=== PATIENT | male | born 1945 | race African-American/Black ===

== ENCOUNTER 2018-10-02 12:21 | Observation (INO) ==
[2018-10-02] MEDS ORDERED: NITROGLYCERIN TOP ONE (13:02)
--- NOTE | 2018-10-02 13:21 | EKG Report ---
Test Performed on : 10/02/2018 12:28:42 PM Test Reason : chest pain Blood Pressure : / mmHG Vent. Rate : 078 BPM Atrial Rate : 078 BPM P-R Int : 170 ms QRS Dur : 116 ms QT Int : 428 ms P-R-T Axes : 089 036 268 degrees QTc Int : 487 ms Normal sinus rhythm. Inferior infarct (cited on or before 11-APR-2016) ST & T wave abnormality, consider lateral ischemia Abnormal ECG When compared with ECG of 03-MAY-2016 06:10, No significant change was found Unconfirmed Result
--- NOTE | 2018-10-02 13:21 | Diag Imaging Result Doc PS360 ---
EXAM: CHEST-2 VIEWS 10/02/2018 HISTORY: chest pain TECHNIQUE: PA and lateral chest COMMENT: The inspiration is suboptimal. Considering the degree of inspiration there has probably been no significant change since 01/10/2018. IMPRESSION: Poor inspiration. Electronically signed by Anjum Lee 10/02/2018 1:19 PM
[2018-10-02 14:02] LABS: BASO# 0.02 X1000 (0.0-0.2); BASO% 0.4 % (0.0-0.8); EOS# 0.04 X1000 (0.0-0.7); EOS% 0.9 % (0.0-10.0); HEMATOCRIT 36.7 % (42.0-52.0); HEMOGLOBIN 12.4 g/dL (14.0-18.0); LYMPH# 0.92 X1000 (1.2-3.4); LYMPH% 19.8 % (20.5-51.1); MCH 30.8 PG (27-31); MCHC 33.8 g/dL (33-37); MCV 91.3 FL (81-99); MONO# 0.38 X1000 (0.11-0.59); MONO% 8.2 % (1.7-9.3); MPV 10.1 FL (7.4-10.4); NEUT# 3.29 X1000 (1.4-6.5); NEUT% 70.7 % (42.2-75.2); PLT 150 X1000 (130-400); RBC 4.02 XMIL (4.7-6.1); WBC 4.65 X1000 (4.8-10.8)
[2018-10-02 14:09] LABS: INR 1.22; PROTIME 16.4 Seconds (11.0-16.0)
[2018-10-02 14:11] LABS: PTT 32.6 Seconds (22.3-41.8)
[2018-10-02 14:18] LABS: ALB/GLOB RATIO 1.5; ALBUMIN 3.9 g/dL (3.5-5.0); CREATININE 1.6 mg/dL (0.7-1.2); MAGNESIUM 1.4 mg/dL (1.5-2.7); POTASSIUM 4.5 mmol/L (3.5-5.1); TOTAL BILIRUBIN 0.74 mg/dL (0.20-1.00); TOTAL PROTEIN 6.5 g/dL (6.3-8.3)
[2018-10-02] MEDS ORDERED: MAGNESIUM SULFATE 4 GM/S.W.I. 4 GM/100 ML IVPB IV ONE (15:01)
--- NOTE | 2018-10-02 16:33 | PROVIDER DOCUMENTATION ---
This chart was entered by Dee Crockett Scribe, acting as scribe for Von Mejía MD. HPI-Chest Pain - General Chief Complaint: Chest Pain Stated Complaint: CP Time Seen by Provider: 10/02/18 12:45 Source: patient Allergies/Adverse Reactions: Patient Allergies Allergy/AdvReac Type Severity Reaction Status Date / Time No Known Allergies Allergy Verified 10/02/18 12:57 Home Medications: Home Medication List Medication Instructions Recorded Confirmed Last Taken Type Metoprolol Succinate E.r. [Toprol 200 mg PO DAILY 05/21/13 01/10/18 05/02/16 06:00 History Xl] Omeprazole 20 mg PO BID 05/21/13 01/10/18 05/02/16 06:00 History Potassium Chloride 20 meq PO DAILY 05/21/13 01/10/18 05/02/16 06:00 History Amlodipine [Norvasc] 5 mg PO DAILY #0 tablet 04/16/16 01/10/18 05/02/16 06:00 Rx Apixaban [Eliquis] 5 mg PO BID #60 tablet 04/16/16 01/10/18 05/02/16 06:00 Rx Aspirin EC 81 mg PO DAILY #0 tablet 04/16/16 01/10/18 05/02/16 06:00 Rx Clopidogrel [Plavix] 75 mg PO DAILY #0 tablet 04/16/16 01/10/18 05/02/16 06:00 Rx Colesevelam [Welchol] 625 mg PO BID #0 tablet 04/16/16 01/10/18 05/02/16 06:00 Rx ENALApril [Vasotec] 5 mg PO DAILY #0 tablet 04/16/16 01/10/18 05/02/16 06:00 Rx Ezetimibe [Zetia] 10 mg PO DAILY #0 tablet 04/16/16 01/10/18 05/02/16 06:00 Rx Hydrocodone/APAP 10 mg/325 mg 1 each PO BID PRN PRN #0 tablet 04/16/16 01/10/18 05/01/16 21:00 Rx [[place]-10] Isosorbide Mononitrate E.r. [Imdur] 60 mg PO DAILY #0 tablet 04/16/16 01/10/18 05/02/16 06:00 Rx Magnesium Cl D.r. [Slow-Mag] 64 mg PO DAILY #0 tablet 04/16/16 01/10/18 05/02/16 06:00 Rx Amiodarone [Cordarone] 400 mg PO DAILY #30 tablet 05/04/16 01/10/18 Unknown Rx Methocarbamol [Robaxin] 500 mg PO BID PRN #14 tab 01/10/18 Unknown Rx - History of Present Illness-CP Nature of Presenting Problem: 73 y/o male presents to ED with central, non-radiating chest pain onset 3 hours ago. Pt reports his symptoms have subsided now. Pt states he does have some back pain, but denies nay other symptoms. Pt is alert and oriented. Location: reports: central Chest Pain Radiation: reports: no radiation Quality of Pain: reports: sharp Severity in ED: moderate Onset/Duration: 1-3 hours ago Timing: gone now Context/Activities at Onset: reports: none Modifying Factors: improves with: nothing Associated Symptoms: reports: back pain Nitro Today/Relief: provided by ED Aspirin Treatment Today: no aspirin today Prior Chest Pain/Cardiac Workup: reports: other (CABG) Similar Symptoms Previously?: No Recently Seen Here or By Another Healthcare Provider: No Review of Systems - Adult - REVIEW OF SYSTEMS - ADULT Constitutional: denies: chills, fever Eyes: reports: no symptoms reported Ears, Nose, Mouth & Throat: reports: no symptoms reported Cardiovascular: reports: chest pain. denies: palpitations Respiratory: denies: cough, shortness of breath Gastrointestinal: denies: abdominal pain, diarrhea, nausea, vomiting Genitourinary: reports: no symptoms reported Musculoskeletal: reports: back pain. denies: joint pain Integumentary: reports: no symptoms reported Neurological: denies: dizziness/vertigo, seizure Psychiatric: reports: no symptoms reported Endocrine: reports: no symptoms reported Hematologic/Lymphatic: reports: no symptoms reported Allergic/Immunologic: reports: no symptoms reported All Other Systems: Reviewed and Negative Past History - Adult - PAST MEDICAL HISTORY-ADULT Review of Records: reports: Old Records Reviewed, Nursing Assessment Review, Medications Reviewed Major Childhood Illnesses: reports: denies history Cardiovascular: reports: blood clots (PE), CHF, HTN, hyperlipidemia, other (Cardiac disease; ) Gastrointestinal: reports: GERD - PRIOR SURGERIES/PROCEDURES Surgical/Procedure History: reports: CABG, hernia repair, other (hernia repair) - IMMUNIZATION STATUS Childhood Immunizations: See Nurse Assessment Flu Vaccine: See Nurse Assessment - FAMILY HISTORY Family History: reviewed, not pertinent - SOCIAL HISTORY Smoking: less than 1 pack/day Provider spent 3-5 mins advising pt. on dangers of tobacco.: Discussed manners to quit use, and f/u contacts for add'l counseling. Substance Use: none/never Alcohol Use Frequency: never Living Situation: family Physical Exam-General - PHYSICAL EXAM-ADULT Initial Vital Signs Reviewed: Yes - CONSTITUTIONAL General Appearance: appears well, alert, no apparent distress - EYES Eyes: PERRL/EOMI, pink conjunctivae - HEAD, EARS, NOSE, MOUTH & THROAT HENMT: normocephalic/atraumatic, moist mucous membranes, normal ENT inspection - NECK Neck: non-tender, full range of motion - RESPIRATORY Respiratory: chest non-tender, lungs clear, normal breath sounds - CARDIOVASCULAR Cardiovascular: normal peripheral pulses, regular rate, rhythm - GASTROINTESTINAL (ABDOMEN) Abdominal Exam: normal bowel sounds, non tender, soft - MUSCULOSKELETAL Back Exam: normal inspection, no CVA tenderness Extremity: normal range of motion, non-tender, normal gait - SKIN Integumentary: normal color, warm/dry - NEUROLOGIC Neurologic: grossly normal - PSYCHIATRIC Psych/Mental Status: normal mood/affect, normal thought content, normal thought process - HEART Score HEART Score: History: Slightly Suspicious HEART Score: ECG: Normal HEART Score: Age: > or = 65 Years HEART Score: Risk Factors for Atherosclerotic Disease: > or = 3 Risk Factors or History of Atherosclerotic Disease HEART Score: Troponin: < or = Normal Limit Total HEART Score:: 4 Progress - PLAN OF CARE/RESULTS Progress/Plan/Lab Results: Vital Signs - 8 hr 10/02/18 12:29 10/02/18 15:29 Temperature 97.8 F Pulse Rate 77 66 Respiratory Rate 20 18 Blood Pressure 138/81 125/76 O2 Sat by Pulse Oximetry 97 99 Laboratory Results - last 24 hr 10/02/18 10/02/18 10/02/18 13:45 13:45 13:45 WBC 4.65 L RBC 4.02 L Hgb 12.4 L Hct 36.7 L MCV 91.3 MCH 30.8 MCHC 33.8 RDW Std Deviation 14.0 Plt Count 150 MPV 10.1 Immature Gran % (Auto) 0.0 Neut % (Auto) 70.7 Lymph % (Auto) 19.8 L [place] % (Auto) 8.2 Eos % (Auto) 0.9 Baso % (Auto) 0.4 Immature Gran # (Auto) 0.00 Neut # (Auto) 3.29 Lymph # (Auto) 0.92 L [place] # (Auto) 0.38 Eos # (Auto) 0.04 Baso # (Auto) 0.02 PT INR PTT (Actin FS) Sodium 141 Potassium 4.5 Chloride 105 Carbon Dioxide 25 Anion Gap 11 BUN 22 Creatinine 1.6 H Estimated GFR/1.73 m2 52 BUN/Creatinine Ratio 14 Glucose 103 Calculated Osmolality 285 Calcium 10.0 Magnesium 1.4 L Total Bilirubin 0.74 AST 18 ALT 11 Alkaline Phosphatase 62 Creatine Kinase 76 Troponin T Cad-V-Sfmjnxlmojd Pept 872 H Total Protein 6.5 Albumin 3.9 Globulin 2.6 Albumin/Globulin Ratio 1.5 10/02/18 10/02/18 13:45 13:45 WBC RBC Hgb Hct MCV MCH MCHC RDW Std Deviation Plt Count MPV Immature Gran % (Auto) Neut % (Auto) Lymph % (Auto) [place] % (Auto) Eos % (Auto) Baso % (Auto) Immature Gran # (Auto) Neut # (Auto) Lymph # (Auto) [place] # (Auto) Eos # (Auto) Baso # (Auto) PT 16.4 H INR 1.22 PTT (Actin FS) 32.6 Sodium Potassium Chloride Carbon Dioxide Anion Gap BUN Creatinine Estimated GFR/1.73 m2 BUN/Creatinine Ratio Glucose Calculated Osmolality Calcium Magnesium Total Bilirubin AST ALT Alkaline Phosphatase Creatine Kinase Troponin T 0.021 Iqe-Y-Maxjpycggyw Pept Total Protein Albumin Globulin Albumin/Globulin Ratio Orders Category Date Time Status Admit - [facility] Routine AdmDCTranf 10/02/18 15:57 Active Cardiac Monitoring DIRECTED Care 10/02/18 13:01 Active Nursing- MD Consult Request ROUTINE Care 10/02/18 15:46 Active Oxygen Therapy- ED Nursing DIRECTED Care 10/02/18 13:01 Active Saline Loc NOW Care 10/02/18 13:01 Active Physician/Provider Consults Routine Cons 10/02/18 15:45 Ordered CHEST-2 VIEWS [RAD] Stat Exams 10/02/18 13:01 Completed CBC WITH ELECTRONIC DIFF [HEME] Stat Lab 10/02/18 13:45 Completed CK PROFILE [SP CHEM] Stat Lab 10/02/18 13:45 Completed COMPREHENSIVE METABOLIC PANEL [CHEM] Stat Lab 10/02/18 13:45 Completed MAGNESIUM [CHEM] Stat Lab 10/02/18 13:45 Completed PRO B-NATRIURETIC PEPTIDE Stat Lab 10/02/18 13:45 Completed PROTIME WITH INR [COAG] Stat Lab 10/02/18 13:45 Completed PTT [COAG] Stat Lab 10/02/18 13:45 Completed TROPONIN T Stat Lab 10/02/18 13:45 Completed Magnesium Sulfate 4 gm/S.w.i. [Magnesium Sulfate 4 gm/S Med 10/02/18 15:01 Active .w.i] 4 gm in 100 ml IV NOW Nitroglycerin Med 10/02/18 13:02 Discontinued 1 inch TOP NOW ONE CP/SOB/Palp >45 yrs of Age Stat Oth 10/02/18 12:59 Ordered EKG [EKG] Stat Ther 10/02/18 13:01 Draft Transfer/Admit Order [TRANSFER] Routine Transfer 10/02/18 15:56 Ordered Result Diagrams: 10/02/18 13:45 10/02/18 13:45 - EKG 1 Time of EKG reading by physician:: 12:39 EKG Read and Signed by:: Von Mejía EKG Interpretation (*Must complete 3 of following elements*): Abnormal Rate: 78 Rhythm: NSR [place]: normal QRS: other (inferior infarct) CA Interval: normal ST Wave: non-specific ST changes (consider lateral ischemia) Comments: No STEMI. -Dr. Mejía - XRAY 1 XRAY Study: Chest Impression: Abnormal (COMMENT: The inspiration is suboptimal. Considering the degree of inspiration there has probably been no significant change since 01/10/2018. IMPRESSION: Poor inspiration. Electronically signed by Anjum Lee 10/02/2018 1:19 PM) - CONSULTS/PCP/HOSPITALIST Notification #1 *Consult/PCP/Hospitalist*: Dr. Fish Time Discussed: 16:00 Reason/Comments: Chest pain Consult Disposition: Admit Departure - Departure Date of Disposition Decision: 10/02/18 Time of Disposition Decision: 16:32 DIAGNOSIS: V-tach, Hypomagnesemia Chest pain Qualifiers: Chest pain type: unspecified Qualified Code(s): R07.9 - Chest pain, unspecified Disposition: ADMITTED INPATIENT 09 Certified Medical Emergency: Emergent Condition: Stable Referrals and Follow-Ups: Basim Alberts MD [Primary Care Provider] - Discharge Education: Steps to Quit Smoking, [id number] - Critical Care Note This patient required my direct & personal management of CC.: No Attestation - Physician/ SHAISTA Attestation Patient care was provided by Advanced Practice Provider:: No The physician spent face to face time with patient:: Yes Advanced Practice Provider documentation review:: Supervising physician onsite and consulted in the evaluation and care of this patient. The physician did have a face to face encounter with the patient. This chart was documented by the indicated scribe, (Dee Crockett, [place]) and accurately reflects the services I performed and decisions made by me, Von Wiggins MD, as attested by the provider's signature.
[2018-10-02] MEDS ORDERED: NORCO-10 PO PRN (17:03)
--- NOTE | 2018-10-02 18:37 | CARDIOLOGY CONSULTATION ---
DATE: 10/02/2018 CHIEF COMPLAINT ON PRESENTATION: Chest pain. HISTORY OF PRESENT ILLNESS: Mr. Avila is a 73-year-old black male with a history of coronary disease who presented for evaluation of chest pain. This episode began this morning while he was standing in front of the window. It was in an essentially resting type position. It was a burning discomfort in his mid chest with no radiation. It lasted for around 3 hours with no other associated symptoms. There was no exertional component to it. This happened before he took his a.m. medications but after he had eaten. PAST MEDICAL HISTORY: Significant for: 1. Coronary artery disease with history of bypass grafting in 1994 with a GLASS to the LAD, vein graft to the RCA, vein graft to an OM and a vein graft to a diagonal. His most recent cardiac catheterization was in 2015. by Dr. Sosa. This demonstrated a completely occluded LAD right after a first diagonal. [place] was patent to the LAD. There was a diagonal that had a very focal 80% proximal lesion that was quite tortuous. The left main had severe ostial disease that is calcified. The ramus was a small tortuous vessel severely and diffusely diseased. Circumflex is occluded ostially. Right coronary artery is occluded within its proximal section. There was some right to right collaterals visualized. All vein grafts were occluded. 2. Ischemic cardiomyopathy; however, most recent gated heart scan demonstrated an EF of 61%. 3. Ventricular tachycardia for which he takes amiodarone. 4. Pulmonary embolism for which he is on Eliquis. 5. Hypertension. 6. Hyperlipidemia. 7. Carotid artery disease. 8. Chronic back pain. SOCIAL HISTORY: He lives at home. He does not currently use any illicit substances. FAMILY HISTORY: Significant for hypertension. REVIEW OF SYSTEMS: A 10-system review of systems is negative except for those things mentioned in HPI. PHYSICAL EXAMINATION: Vital Signs: He is afebrile, heart rate 66. His blood pressure is 125/76. General: He is in no acute distress. HEENT: Oropharynx is moist. Poor dentition. Eye examination has pink conjunctivae. White sclerae. Neck: Examination shows no obvious thyromegaly or thyroid tenderness. Cardiovascular: He sounds to be in a regular rate and rhythm. I do not hear any obvious murmurs. He has no S3. He has no lower extremity edema. No carotid bruits. Chest: Exam is clear bilaterally. He has no increased work of breathing. Abdomen: Soft, nontender, nondistended. He has no obvious organomegaly. Skin: Warm and dry throughout without any rashes. Neurological: He is moving all extremities well. He has no lateralizing deficits. PERTINENT DATA: His chest x-ray shows no evidence of any acute disease. His EKG checked today at 12:28 shows sinus rhythm. T-wave inversions noted inferiorly and laterally with presumed inferior infarct identified. This does not appear to be significantly different from a 2016 EKG that he had on file here. His lab data shows a white count of 4.6. His hematocrit is 36. His platelet count is 150,000. His sodium is 141, potassium is 4.5, BUN 22, creatinine 1.6, which appears slightly higher than his baseline. His proBNP is 872. His initial cardiac enzymes are negative. ASSESSMENT: Mr. Avila is a 73-year-old gentleman who presented with atypical chest discomfort. PLAN: At this point, we will rule him out. I have reinstituted some of his medications. I would not continue his Plavix. As per note with Dr. Card in the office in January of 2018, he was not on Plavix and only taking aspirin and Eliquis. If his enzymes are unremarkable and his echocardiogram is unremarkable, then he can likely be discharged with an expedited outpatient stress next week. cc: Partha Malloyr MD
[2018-10-02] MEDS: ELIQUIS PO SCH (20:38)
--- NOTE | 2018-10-02 22:09 | HISTORY AND PHYSICAL ---
CHIEF COMPLAINT: Chest pain of about 2 hours duration. HISTORY OF PRESENT ILLNESS: Mr. Avila is a 73-year-old man, with past medical history of coronary artery disease, status post CABG in 1994, status post blocked saphenous vein graft and patent internal mammary artery graft to LAD as per coronary angiography in 2016, where he was recommended medical management only. He comes in with chief complaint of chest pain which started today morning at about 10:30. Patient says he was trying to lie down in his bed and suddenly he started experiencing chest pain in the center of the chest, achy, without any radiation, without associated shortness of breath, palpitation, nausea, or weakness. He did not have significant aggravating or relieving factor. The chest pain was persistent and so he decided to come to the emergency room. However, by the time he came to the emergency room, his chest pain had already resolved. He denies any cough or shortness of breath or chest pain at the moment. In the emergency room, his initial workup detected inferolateral T-wave inversions on EKG which were old. However, in the emergency room, he did have episodes of wide complex tachycardia. Three such episodes were noticed, which were symptomatic and the patient was feeling fluttering, so the hospitalist team was consulted for further management. At the time of my evaluation, he is denying any chest pain, shortness of breath, or any more such episodes since about an hour or so. He states that he takes all of his medications regularly, and he took medications in the morning time as well. REVIEW OF SYSTEMS: Currently negative for chest pain. Currently, negative for palpitations; however, he has had about 3 or 4 episodes of palpitation while in the emergency room. Negative for dizziness, headache. Negative for blurriness of vision. Negative for nausea, vomiting, abdominal pain. Negative for diarrhea. PAST MEDICAL HISTORY: 1. History of ventricular tachycardia. 2. History of coronary artery disease, status post CABG, with patent internal mammary artery graft to LAD and blocked saphenous vein graft. 3. Essential hypertension. 4. Pulmonary embolism in 2013, on Eliquis. 5. Gastroesophageal reflux disease. 6. Chronic systolic congestive heart failure with ejection fraction of 45% in 2016. 7. Hyperlipidemia. 8. Ongoing tobacco use, for which he was counseled about stopping it. 9. Chronic back pain. PAST SURGICAL HISTORY: Includes: 1. Coronary artery bypass graft. 2. Ventral hernia repair. 3. Hemorrhoidectomy. SOCIAL HISTORY: The patient is an active smoker. He smoked about a half pack a day since his young age. He denies any alcohol or drug use. FAMILY HISTORY: Pertinent for diabetes mellitus. ALLERGIES: No known drug allergies. HOME MEDICATIONS: The medication reconciliation is pending. According to previous discharge summary, he is supposed to be on: 1. Amiodarone 400 mg daily. 2. Norvasc 5 mg daily. 3. Eliquis 5 mg b.i.d. 4. Aspirin 81 mg daily. 5. Plavix 75 mg daily. 6. Welchol 625 mg b.i.d. 7. Vasotec 5 mg daily. 8. Zetia 10 mg daily. 9. [place] 10 one tablet b.i.d. p.r.n. for pain. 10. Imdur 60 mg daily. 11. Toprol 200 mg daily. 12. Magnesium 64 mg daily. 13. Omeprazole 20 mg b.i.d. 14. Potassium 20 mEq daily. VITAL SIGNS: Currently, temperature 97.8 degrees, pulse 77, respiratory rate 20, blood pressure 138/81, saturating 97% on room air. PHYSICAL EXAMINATION: GENERAL: Patient does not appear in any acute distress. ORAL CAVITY: Moist. LUNGS: Air entry bilaterally equal. No wheeze, rhonchi, crackles. CARDIOVASCULAR: S1, S2 normal. Appears regular and sinus on bedside monitor. No murmur, rub, or gallop. ABDOMEN: Soft, nontender. EXTREMITIES: He has mild bilateral lower extremity edema extending up to midshin level. LABS: Suggestive of WBC of 4.6, hemoglobin 12.4, platelet of 150,000. His INR is 1.2. Normal electrolytes except creatinine of 1.6, which is close to his baseline creatinine of 1.1 to 1.6. He does appear to have chronic kidney disease stage 2 to stage 3. MICROBIOLOGY: No data. IMAGING: Chest x-ray had poor inspiratory effort without any abnormalities. EKG: Has normal sinus rhythm with inferolateral T-wave inversions. Telemetry strip did have 3 episodes of ventricular tachycardia of about 150 per minute. ASSESSMENT: 1. Atypical chest pain, with known history of coronary artery disease, with blocked previous saphenous vein graft and patent internal mammary artery graft to left anterior descending, with prior history of coronary artery bypass grafting in 1994. 2. Episodes of wide complex tachycardia- likely beats of SVT with aberrancy. 3. Essential hypertension and hyperlipidemia. 4. History of pulmonary embolism. 5. Tobacco abuse. 6. Chronic systolic congestive heart failure with ejection fraction of 45% in 2016. PLAN: 1. I will start the patient on his home medication of amiodarone, metoprolol for coronary artery disease, to take care of his ventricular tachycardia as well. 2. I will continue his home enalapril, amlodipine, and isosorbide for essential hypertension. 3. His aspirin and Eliquis for history of pulmonary embolism. 4. I will admit him, follow up with troponin trends, and monitor him in telemetry unit in [facility]. 5. Plan of care discussed with patient and his family at bedside. 6. I will also consult Cardiology for further recommendations. cc: Cortes Fish MD MTDD
--- NOTE | 2018-10-03 01:37 | ECHO REPORT ---
ORDER DATE: 10/02/2018 SUMMARY: 1. Technically difficult study due to limited parasternal acoustic window quality. 2. Aortic valve is trileaflet and opens normally on 2-dimensional images. Mitral, tricuspid, and pulmonic valves are without evidence of structural abnormality with trace mitral regurgitation and trace pulmonic insufficiency. The aortic root is normal size. 3. Normal left ventricular chamber size with moderate concentric left ventricular hypertrophy is demonstrated. Estimated left ventricular ejection fraction appears to be at least 50%. There is severe hypokinesis of the basal to mid inferior wall and basal to mid inferolateral wall. Doppler suggests grade 1 left ventricular diastolic dysfunction. Left atrium is mildly enlarged. Right atrium and right ventricle are normal in size with preserved right ventricular systolic function. 4. No pericardial effusion. 5. Appearance of inferior vena cava suggests normal central venous pressure. CONCLUSIONS: 1. Technically difficult study. 2. Moderate concentric left hypertrophy with estimated left ejection fraction at least 50%, with severe hypokinesis of basal to mid inferior wall and basal to mid inferolateral wall. 3. Grade 1 left ventricular diastolic dysfunction suggested. 4. Mild left atrial enlargement. cc: MD Partha Oshea MD
[2018-10-03 06:27] LABS: CALCIUM 9.5 mg/dL (8.8-10.2); CREATININE 1.7 mg/dL (0.7-1.2); MAGNESIUM 2.1 mg/dL (1.5-2.7); POTASSIUM 4.3 mmol/L (3.5-5.1)
[2018-10-03] MEDS ORDERED: ROBAXIN PO PRN (07:56)
[2018-10-03] MEDS ORDERED: IMDUR PO SCH (09:00)
[2018-10-03] MEDS ORDERED: ASPIRIN EC PO SCH (09:00)
[2018-10-03] MEDS ORDERED: PRILOSEC PO SCH (09:00)
[2018-10-03] MEDS ORDERED: WELCHOL PO SCH (09:00)
[2018-10-03] MEDS ORDERED: TOPROL XL PO SCH (09:00)
[2018-10-03] MEDS ORDERED: CORDARONE PO SCH (09:00)
[2018-10-03] MEDS ORDERED: VASOTEC PO SCH (09:00)
[2018-10-03] MEDS ORDERED: ZETIA PO SCH (09:00)
[2018-10-03] MEDS ORDERED: NORVASC PO SCH (09:00)
[2018-10-03] MEDS: ELIQUIS PO SCH (09:54)
[2018-10-03 11:12] VITALS: BP 137/67
--- NOTE | 2018-10-03 21:22 | PROGRESS NOTE ---
DATE: 10/03/2018 INTERVAL HISTORY: Overnight no acute events. The patient did have what I think were beats of supraventricular tachycardia with aberrancy; however, subjectively he denies any chest pain. He is not feeling short of breath. He denies any palpitation episodes. OBJECTIVE: Vital signs: Temperature 97.4 degrees, pulse 63, respiratory rate 18, blood pressure 134/64, saturating 100% room air. General: Does not appear in acute distress. Oral cavity is moist. Air entry bilaterally equal. No wheeze, rhonchi or crackles. S1, S2 normal. No murmur, rub or gallop. Abdomen is soft, nontender. He has mild bilateral lower extremity edema. LABORATORY DATA: No CBC today. BMP is essentially unremarkable except chronic kidney disease stage 3. His troponins were showing pretty much negative and flat trend. DIAGNOSTIC DATA: Echocardiogram had suggested moderate left ventricular hypertrophy with ejection fraction of 50%, with severe hypokinesia of basal to mid inferior wall and inferolateral wall. ASSESSMENT: 1. Atypical chest pain with known history of coronary artery disease, with blocked saphenous vein graft and patent internal mammary artery graft to left anterior descending artery, with prior history of coronary artery bypass graft in 1994. His last coronary angiography was in 2016. 2. Episodes of wide-complex tachycardia, likely supraventricular tachycardia with aberrancy, with a few beats of premature ventricular contractions. 3. Essential hypertension and hyperlipidemia. 4. History of pulmonary embolism. 5. Tobacco abuse. 6. Chronic systolic congestive heart failure with ejection fraction of 45% in 2016. PLAN: His troponins have been showing flat trend and echocardiogram does suggest hypokinesia of inferior wall; however, it was present on previous echocardiogram in 2016 as well. I will appreciate Cardiology recommendations, if he would need further stress testing or just medical management of it. Meanwhile, I will continue his home medication of aspirin and Eliquis. I will continue beta-braydon, CODY inhibitors, enalapril, amiodarone and isosorbide. I will continue his pain medication including methocarbamol and [place]. His hypomagnesemia has resolved. Disposition: I will await Cardiology recommendation based on it. My plan is to discharge him later today if no other inpatient cardiovascular management is planned. Plan of care discussed with the patient. All of his questions have been answered. cc: Cortes Fish MD
--- NOTE | 2018-10-04 07:57 | CARDIOLOGY PROGRESS NOTE ---
DATE: 10/03/2018 SUBJECTIVE: Mr. Avila has not had any episodes of chest pain overnight. He feels well this morning. PHYSICAL EXAMINATION: Vital Signs: He is afebrile, heart rate 65, blood pressure 137/67. General: He is in no acute distress. Cardiovascular: He sounds to be in a regular rate and rhythm. He has no murmurs. He has no S3. He has no lower extremity edema. Chest: Sounds clear bilaterally. He has no increased work of breathing. Abdomen: Soft, nontender. PERTINENT IMAGING AND LABORATORY DATA: He had an echocardiogram yesterday that shows an ejection fraction of at least 50%, with moderate concentric left ventricular hypertrophy. He does have some wall motion abnormalities in the basal to mid inferior wall and basal to mid inferolateral wall. His lab data shows a sodium of 142, potassium 4.3, BUN 23, creatinine 1.7. His cardiac enzymes are negative times multiple sets. He has had some telemetry showing nonsustained runs of ventricular tachycardia on the order of less than 10 beats. ASSESSMENT: Mr. Avila is a 73-year-old male with a history of coronary disease, who he presented with atypical chest pain yesterday. PLAN: His EKG has been unremarkable. His cardiac enzymes are unremarkable as well. He had atypical symptoms. His echocardiogram shows a preserved ejection fraction with wall motion abnormalities in territories in which he is known to have occluded coronary arteries. At this point, I would recommend escalation of his antianginals in the form of Imdur, which I will increase to 90 mg daily. He may follow up with Dr. Card. I will make arrangements for an outpatient stress to be done early next week. From my standpoint, the patient could be discharged today. cc: Partha Mallory MD
[2018-10-04] MEDS ORDERED: IMDUR PO SCH (09:00)
--- NOTE | 2018-10-04 11:59 | DISCHARGE SUMMARY ---
ADMISSION DATE: 10/02/2018 DISCHARGE DATE: 10/03/2018 DISCHARGE DISPOSITION: Home with family. No other discharge needs. DISCHARGE CONDITION: Stable patient hemodynamically. The patient is alert and oriented x3. He has not had any more chest pain episodes. He has not had any more palpitation episodes, which he had in the emergency room. The telemetry monitoring had a couple of episodes of what looked like aberrantly transmitted supraventricular tachycardia. There were about 7 or 8 beats, but the patient was not having any symptoms of it. DISCHARGE DIAGNOSES: 1. Atypical chest pain. 2. Wide-complex tachycardia episode in the emergency room, likely in the setting of supraventricular tachycardia with aberrancy. OTHER DIAGNOSES: 1. Essential hypertension. 2. Hyperlipidemia. 3. History of pulmonary embolism. 4. Active current tobacco abuse. 5. Chronic systolic congestive heart failure with ejection fraction of 45%. 6. History of coronary artery disease, status post coronary artery bypass graft with patent internal mammary artery graft to LAD and blocked saphenous vein graft as per coronary angiography in 2015 at which point, medical management was recommended. 7. History of ventricular tachycardia. 8. History of pulmonary embolism in 2013 on Eliquis. 9. Chronic gastroesophageal reflux disease. 10. Chronic back pain. DISCHARGE MEDICATIONS: Omeprazole 20 mg b.i.d., potassium chloride 20 mEq daily, metoprolol succinate extended release 200 mg daily, aspirin 81 mg daily, amiodarone 400 mg daily, apixaban 5 mg b.i.d., isosorbide mononitrate extended release 90 mg tablet daily, [place] 10 one tablet b.i.d. as needed for pain, amlodipine 5 mg daily, methocarbamol 500 mg b.i.d. as needed, magnesium chloride 64 mg daily, enalapril 5 mg daily, colesevelam 625 mg p.o. b.i.d., ezetimibe 10 mg p.o. daily. PHYSICAL EXAMINATION: Vitals: At the time of discharge temperature 97.8 degrees, pulse 65, respiratory rate 18, blood pressure 137/67, saturating 99% on room air. General: Patient does not appear in any acute distress, oral cavity is moist. Lungs: Air entry bilaterally equal. No wheeze, rhonchi, or crackles. Cardiovascular: S1, S2 normal. Regular. No murmur, rub, or gallop. Abdomen: Abdomen is soft, nontender. He has mild bilateral lower extremity edema extending up to midshin level. SIGNIFICANT LABORATORY DATA AT TIME OF DISCHARGE: WBC is 4.6, hemoglobin 12.4, platelet count 150,000. INR of 1.2. Normal electrolytes. Chronic kidney disease stage 3 with a BUN of 23, creatinine of 1.7. Significant microbiology during hospital admission: None. Troponin showing flat trend with peak of 0.04. Microbiology: No data. IMAGING: The patient underwent a chest x-ray which suggested poor inspiration without any significant acute abnormality. Echocardiogram had suggested moderate concentric left ventricular hypertrophy with ejection fraction of 50% with severe hypokinesis of basal to mid inferior wall and basal to mid inferolateral wall, grade 1 ventricular diastolic dysfunction. Electrocardiogram had suggested he had normal sinus rhythm. There were old inferior infarcts and there were inferolateral T-wave inversions which were old as well. HOSPITAL COURSE/SUMMARY: Mr. Avila is a 73-year-old man with past medical history of coronary artery bypass graft in 1994 who was worked up with coronary angiography in 2016, at which point it was detected that he had blocked saphenous vein grafts and had a patent internal mammary artery graft to LAD, who came into the emergency room for chief complaints of chest pain which had started about 2 hours prior to presentation. The patient was lying down in his bed, at which time he had started experiencing chest pain in the center of the chest, which was achy without any radiation or associated shortness of breath. In the emergency room, by the time he came in, he was chest pain free. However, while on telemetry in the ER, he had 2 or 3 rounds of wide complex tachycardia, so the hospitalist team was contacted for overnight observation. His EKG had old inferolateral T-wave inversions and his troponins did not show any acute coronary syndrome-related trend. It was on my review of telemetry, it was thought that his wide complex tachycardia was likely aberrantly conducted supraventricular tachycardia with bundle branch block pattern. In addition, he also had a few PVCs. He did not have any more chest pain episodes inside the hospital and Cardiology has recommended outpatient stress test. So patient was discharged home. Plan of care was discussed extensively with the patient and he was provided detailed discharge instructions on my initial encounter in the morning time. TIME SPENT: More than 30 minutes was spent in discharging this patient. cc: Cortes Fish MD
--- NOTE | 2018-10-05 07:20 | EKG Report ---
Test Performed on : 10/03/2018 06:04:49 AM Test Reason : cp Blood Pressure : / mmHG Vent. Rate : 057 BPM Atrial Rate : 057 BPM P-R Int : 192 ms QRS Dur : 122 ms QT Int : 500 ms P-R-T Axes : 086 055 -18 degrees QTc Int : 486 ms Sinus bradycardia. Possible Inferior infarct (cited on or before 11-APR-2016) Abnormal ECG When compared with ECG of 02-OCT-2018 12:28, (Unconfirmed) No significant change was found Confirmed by Austin BOOKER, Howie Diaz ([id number]) on 10/05/2018 9:28:05 AM
== END 2018-10-03 15:37 | disposition home or self-care (01) ==
LOC: ED 12:21 → EDIPHOLD 12:21 → 3S 18:26
PROVIDERS: ATTEND Internal Medicine
CPT/HCPCS: 71020; 71046; 80048; 80053; 82550; 82948; 83735; 83880; 84484; 85025; 85610; 85730; 93005; 93010; 93306; 96365; 96366; 99285; A9270; J3475; XXXXX

== ENCOUNTER 2019-01-11 17:52 | Inpatient (IN) ==
--- NOTE | 2019-01-11 18:31 | PROVIDER DOCUMENTATION ---
HPI-General Adult - General Chief Complaint: UTI Symptoms Stated Complaint: AMS Time Seen by Provider: 01/11/19 18:12 Source: family Allergies/Adverse Reactions: Patient Allergies Allergy/AdvReac Type Severity Reaction Status Date / Time No Known Allergies Allergy Verified 01/11/19 18:14 Home Medications: Home Medication List Medication Instructions Recorded Confirmed Last Taken Type Metoprolol Succinate E.r. [Toprol 200 mg PO DAILY 05/21/13 10/02/18 05/02/16 06:00 History Xl] Omeprazole 20 mg PO BID 05/21/13 10/02/18 05/02/16 06:00 History Amlodipine [Norvasc] 5 mg PO DAILY #0 tablet 04/16/16 10/02/18 05/02/16 06:00 Rx Aspirin EC 81 mg PO DAILY #0 tablet 04/16/16 10/02/18 05/02/16 06:00 Rx Colesevelam [Welchol] 625 mg PO BID #0 tablet 04/16/16 10/02/18 05/02/16 06:00 Rx ENALApril [Vasotec] 5 mg PO DAILY #0 tablet 04/16/16 10/02/18 05/02/16 06:00 Rx Ezetimibe [Zetia] 10 mg PO DAILY #0 tablet 04/16/16 10/02/18 05/02/16 06:00 Rx Hydrocodone/APAP 10 mg/325 mg 1 each PO BID PRN PRN #0 tablet 04/16/16 10/02/18 05/01/16 21:00 Rx [[place]-10] Amiodarone [Cordarone] 400 mg PO DAILY #30 tablet 05/04/16 10/02/18 Unknown Rx Isosorbide Mononitrate E.r. [Imdur] 90 mg PO DAILY #60 tab 10/03/18 Unknown Rx Magnesium Oxide [Mag-Ox] 400 mg PO BID tab 10/07/18 Unknown Rx - History of Present Illness -Gen Adult Nature of Presenting Problems: 73 yo M, with significant cardiac hx, presents today after being found sitting in his own bodily fluids for the past three days. The pt was found by his niece, who called 911. History comes largely from the patient's niece. The pt lives on his own and can use the restroom on his own, though with daily check-ins from a family member, he gets helps with cooking, bathing, cleaning and medication. However, it appears that this weekend, no one was able to get to him, and when his niece found him today, he was sitting, naked, on his couch, in his urine and feces. He reportedly told his niece he was in [place]. The niece states that this confusion is different from his baseline, as he is usually oriented. Location of Pain/Injury: reports: none Pain Radiation: reports: no radiation Quality of Pain: reports: none Onset/Duration: reports: unsure Context/Activities at Onset: reports: none Modifying Factors: improves with: nothing Associated Symptoms: reports: denies symptoms Similar Symptoms Previously?: No Recently seen or treated by another doctor?: No Review of Systems - Adult - REVIEW OF SYSTEMS - ADULT ROS:: limited per condition Constitutional: reports: no symptoms reported Eyes: reports: no symptoms reported Ears, Nose, Mouth & Throat: reports: no symptoms reported Cardiovascular: reports: no symptoms reported Respiratory: reports: no symptoms reported Gastrointestinal: reports: no symptoms reported Genitourinary: reports: no symptoms reported Musculoskeletal: reports: no symptoms reported Integumentary: reports: no symptoms reported Neurological: reports: no symptoms reported Endocrine: reports: no symptoms reported Past History - Adult - PAST MEDICAL HISTORY-ADULT Review of Records: reports: Nursing Assessment Review, Medications Reviewed Major Childhood Illnesses: reports: denies history Cardiovascular: reports: blood clots (PE), CHF, HTN, hyperlipidemia, other (Cardiac disease; ) Gastrointestinal: reports: GERD Genitourinary: reports: denies history Musculoskeletal: reports: denies history - PRIOR SURGERIES/PROCEDURES Surgical/Procedure History: reports: CABG, hernia repair, other (hernia repair) - IMMUNIZATION STATUS Childhood Immunizations: See Nurse Assessment Flu Vaccine: See Nurse Assessment - FAMILY HISTORY Family History: reviewed, not pertinent Physical Exam-General - PHYSICAL EXAM-ADULT Initial Vital Signs Reviewed: Yes - CONSTITUTIONAL General Appearance: alert, no apparent distress, thin - EYES Eyes: PERRL/EOMI - HEAD, EARS, NOSE, MOUTH & THROAT HENMT: normocephalic/atraumatic - NECK Neck: non-tender - RESPIRATORY Respiratory: lungs clear, normal breath sounds - CARDIOVASCULAR Cardiovascular: tachycardia - GASTROINTESTINAL (ABDOMEN) Abdominal Exam: normal bowel sounds, non tender, soft - MUSCULOSKELETAL Extremity: non-tender, no calf tenderness, other (+1 pitting edema) Peripheral Pulses: dorsalis-pedis (R): 1+, dorsalis-pedis (L): 1+ - NEUROLOGIC Neurologic: no motor/sensory deficits - PSYCHIATRIC Psych/Mental Status: other (oriented to self, place, not time - knows month, not day or year) Progress - PLAN OF CARE/RESULTS Progress/Plan/Lab Results: Vital Signs - 8 hr 01/11/19 18:11 Temperature 99.0 F Pulse Rate 103 H Respiratory Rate 15 Blood Pressure 207/99 O2 Sat by Pulse Oximetry 95 Orders Category Date Time Status CBC WITH DIFF [HEME] Stat Lab 01/11/19 18:17 Uncollected CMP [COMPREHENSIVE METABOLIC PANEL] [CHEM] Stat Lab 01/11/19 18:17 Uncollected URINALYSIS W/POSS RFLX CULT [URINALYSIS] Stat Lab 01/11/19 18:21 Ordered No elevated WBC; EKG remarkable for tachycardia but otherwise unchanged from September 2018 EKG. Trop of 0.051, mildly elevated Cr, CXR shows no acute findings. CT Head shows no acute findings. Result Diagrams: 01/11/19 18:54 01/11/19 18:54 - EKG 1 Time of EKG reading by physician:: 19:29 EKG Read and Signed by:: Sol Hahn EKG Interpretation (*Must complete 3 of following elements*): Abnormal Rate: 105 Rhythm: sinus tachycardia [place]: normal QRS: normal GA Interval: normal ST Wave: non-specific ST changes Prior EKG Comparison: changes noted Comments: EKG in September 2018 shows inferior infarct and T wave changes, tachy is new - XRAY 1 XRAY Study: Chest Impression: Normal XRAY Interpretation: no acute findings - CONSULTS/PCP/HOSPITALIST Notification #1 *Consult/PCP/Hospitalist*: Dr. Bryson Time Discussed: 21:02 Consult Disposition: Admit Departure - Departure Date of Disposition Decision: 01/11/19 Time of Disposition Decision: 21:01 DIAGNOSIS: Hypertensive urgency, Altered mental status Disposition: ADMITTED INPATIENT 09 Certified Medical Emergency: Emergent Condition: Fair Referrals and Follow-Ups: None,PCP [Primary Care Provider] - - Critical Care Note This patient required my direct & personal management of CC.: No Attestation - Physician/ SHAISTA Attestation Patient care was provided by Advanced Practice Provider:: No The physician spent face to face time with patient:: Yes Advanced Practice Provider documentation review:: Supervising physician onsite and consulted in the evaluation and care of this patient. The physician did have a face to face encounter with the patient.
[2019-01-11 18:40] LABS: URINE SOURCE CLEAN CATCH
[2019-01-11 19:09] LABS: BASO# 0.01 X1000 (0.0-0.2); BASO% 0.1 % (0.0-0.8); HEMATOCRIT 40.1 % (42.0-52.0); HEMOGLOBIN 13.6 g/dL (14.0-18.0); MCH 29.1 PG (27-31); MCHC 33.9 g/dL (33-37); MCV 85.9 FL (81-99); MONO# 0.94 X1000 (0.11-0.59); MONO% 11.3 % (1.7-9.3); MPV 11.3 FL (7.4-10.4); NEUT# 6.37 X1000 (1.4-6.5); NEUT% 76.6 % (42.2-75.2); PLT 168 X1000 (130-400); RBC 4.67 XMIL (4.7-6.1); RDW 13.9 % (11.5-14.5); WBC 8.32 X1000 (4.8-10.8)
[2019-01-11 19:11] LABS: BLOOD URINE SMALL (NEGATIVE); COLOR YELLOW; GLUCOSE URINE NEGATIVE (NEGATIVE); KETONE URINE 60 mg/dL (NEGATIVE); LEUKOCYTES URINE NEGATIVE (NEGATIVE); NITRITE URINE NEGATIVE (NEGATIVE); PROTEIN URINE 300 mg/dL (NEGATIVE); TURBIDITY URINE CLEAR (CLEAR)
[2019-01-11 19:14] LABS: INR 1.29; PROTIME 16.3 Seconds (11.0-16.0); PTT 30.9 Seconds (22.3-41.8)
[2019-01-11] MEDS ORDERED: NS 1,000 ML IV ONE ×2 (19:15→19:56)
[2019-01-11 19:20] LABS: UR EPITHELIAL CELLS <10 /HPF (<10); URINE BACTERIA NEGATIVE /HPF; URINE RBC <10 /HPF (<10); URINE WBC <10 /HPF (<10)
[2019-01-11 19:36] LABS: BILIRUBIN URINE SMALL (NEGATIVE); UROBILINOGEN URINE NORMAL (NORMAL)
[2019-01-11 19:37] LABS: AGAP 16; ALB/GLOB RATIO 1.2; ALBUMIN 4.2 g/dL (3.5-5.0); ALKALINE PHOSPHATASE 96 U/L (32-122); BUN 28 mg/dL (8-22); CALCIUM 10.1 mg/dL (8.8-10.2); CHLORIDE 102 mmol/L (98-107); COSMO 286; CREATININE 1.3 mg/dL (0.7-1.2); ESTIMATED GFR > 60; GLUCOSE 111 mg/dL (70-104); GOT 33 U/L (10-34); GPT 20 U/L (10-44); POTASSIUM 3.8 mmol/L (3.5-5.1); SODIUM 140 mmol/L (136-145); TCO2 22 mmol/L (25-35); TOTAL BILIRUBIN 1.92 mg/dL (0.20-1.00); TOTAL PROTEIN 7.8 g/dL (6.3-8.3)
[2019-01-11 19:57] LABS: CK INDEX 1.3 (0.0-2.5); CK-MB 4.29 ng/mL (0.0-5.0)
--- NOTE | 2019-01-11 20:04 | Diag Imaging Result Doc PS360 ---
EXAM: CT HEAD W/O CONTRAST 01/11/2019 HISTORY: AMS TECHNIQUE: This exam was performed using automated exposure control, adjustment of mA or kV according to patient size, and/or use of iterative reconstruction technique. COMMENT: The current study is compared with 01/10/2018. There is patchy lucency in the periventricular white matter bilaterally particularly around the atria of the lateral ventricles. There is no evidence of mass effect, bleed, or abnormal extra-axial fluid collection. There are calcifications in the internal carotid arteries bilaterally. There are mucus retention cysts in the left maxillary sinus. The appearance the brain has not changed significantly since the previous study. The calvarium is intact. IMPRESSION: Chronic ischemic white matter changes. No evidence of acute disease. Electronically signed by Anjum Lee 01/11/2019 8:02 PM
[2019-01-11] MEDS ORDERED: LABETALOL IV ONE ×2 (20:06→21:21)
--- NOTE | 2019-01-11 20:19 | Diag Imaging Result Doc PS360 ---
EXAM: CHEST-1 VIEW 01/11/2019 HISTORY: AMS TECHNIQUE: AP upright chest at 1956 COMMENT: There are sternotomy wires. The heart size and pulmonary vascularity are stable in appearance compared to 10/06/2018. As far as can be determined with the number of objects projected over the chest, there is no evidence of acute pulmonary disease. IMPRESSION: No evidence of acute disease. Electronically signed by Anjum Lee 01/11/2019 8:16 PM
[2019-01-11 21:02] LABS: UR AMPHETAMINES QUAL NONE DETECTED (NONE DETECT); UR BARBITUATES QUAL NONE DETECTED (NONE DETECT); UR BENZODIAZEPIN QUAL NONE DETECTED (NONE DETECT); UR CANNABINOIDS QUAL NONE DETECTED (NONE DETECT); UR COCAINE QUAL NONE DETECTED (NONE DETECT); UR METHADONE QUAL NONE DETECTED (NONE DETECT); UR OPIATES QUAL NONE DETECTED (NONE DETECT); UR OXYCODONE QUAL NONE DETECTED (NONE DETECT); UR PCP QUAL NONE DETECTED (NONE DETECT)
[2019-01-11 22:37] LABS: ALLEN TEST YES; BE -2.9 mmoll (-3.0-3.0); BLOOD TYPE ARTERIAL; HCO3-(ACT) 22.6 mmoll (20.0-26.0); METHB 1.4 % (0.0-1.5); O2(CT) 15.1 mL/dL (15.0-23.0); O2HB 93.2 % (95.0-99.0); PCO2(98.6) 28 mmHg (35-45); PO2(98.6) 68 mmHg (60-100); SAMPLE BLOOD; SAO2 96.4 % (95.0-100.0); THB 11.5 g/dL (11.5-17.4); pH(98.6) 7.46 (7.35-7.45)
--- NOTE | 2019-01-11 22:37 | EKG Report ---
Test Performed on : 01/11/2019 7:22:22 PM Test Reason : AMS Blood Pressure : / mmHG Vent. Rate : 105 BPM Atrial Rate : 105 BPM P-R Int : 134 ms QRS Dur : 120 ms QT Int : 380 ms P-R-T Axes : 085 053 233 degrees QTc Int : 502 ms Sinus tachycardia. Possible Inferior infarct (cited on or before 11-APR-2016) ST & T wave abnormality, consider lateral ischemia Abnormal ECG When compared with ECG of 06-OCT-2018 15:13, ST no longer elevated in Inferior leads ST more depressed in Anterior leads T wave inversion less evident in Inferior leads Inverted T waves have replaced nonspecific T wave abnormality in Anterior leads Unconfirmed Result
[2019-01-11 22:38] LABS: MODALITY ROOM AIR
[2019-01-11] MEDS ORDERED: MAGNESIUM SULFATE 1 GM/D5W 1 GM/100 ML IVPB IV ONE (22:45)
[2019-01-12] MEDS ORDERED: ASPIRIN PO ONE (00:32)
[2019-01-12] MEDS ORDERED: NS 1,000 ML IV SCH (01:30)
[2019-01-12] MEDS ORDERED: ZOFRAN IV PRN (01:49)
[2019-01-12] MEDS ORDERED: TYLENOL PO PRN (01:49)
--- NOTE | 2019-01-12 02:58 | HISTORY AND PHYSICAL ---
ADDENDUM: [facility] PHYSICIAN: Dr Bernard Sood. HISTORY OF PRESENT ILLNESS: Mr. Avila is a 73-year-old man with a past medical history of coronary artery disease, intermittent nonsustained ventricular tachycardia, hypertension, and hyperlipidemia brought in today by family who had not seen him for 2 days. When he was last seen he was A Ox4 and functional. According to the niece and nephew at bedside he got in an argument with his estranged sons, and the next time cari saw him was 2 days later, today, sitting in his feces and urine and unable to move, he was very confused. She has been in the ER, his sensorium has improved, his condition has improved. Workup so far has not identified any particular source. His blood pressure however was 200/90, which may be indicative of him not taking his medication or could represent a cerebrovascular event. Also it is possible that the patient may have had a non ventricular arrhythmic event, which may have the syncope and maybe impacted his cerebral function. An MRI of the brain will be done in the morning to confirm or refute the possibility of a CVA. In the interim we will continue his antiarrhythmic medications. Permissive hypertension will be initiated and resume Eliquis. Consult Cardiology in the morning and/or Neurology, the patient is still altered. cc: MD Evelio Guidry MTDD
[2019-01-12 04:17] LABS: CK INDEX 1.3 (0.0-2.5); CK-MB 3.45 ng/mL (0.0-5.0)
--- NOTE | 2019-01-12 06:33 | HISTORY AND PHYSICAL ---
DATE AND TIME: 01/11/2019 at 2130. At this time, his niece reports that he does not have a primary care physician, though does occasionally get seen by a clinic who from what I understand does write some of his prescriptions. CHIEF COMPLAINT: Altered mental status. HISTORY OF PRESENT ILLNESS: Mr. Avila is a 73-year-old male with a past medical history most notable for coronary artery disease, status post coronary artery bypass graft and cardiac stent placement. From what I understand, this was performed in 2016. He also has a history of ventricular tachycardia, hypertension, pulmonary embolism, chronic systolic congestive heart failure, and hyperlipidemia. The patient's niece and nephew were at bedside. They do help care for him. The patient also according to his niece and nephew state that he has 3 sons, one of them lives in [place], [place]. The other 2 live out of state in [place]. Though they report that one and possibly more than one of his sons were in town this weekend, and on Friday were at his house at the time that his nephew left there. His nephew states that the last time he saw Mr. Avila was on Friday and at approximately 3 days ago. He states when he left him he was fine. He was alert and oriented to person, place and time. He did take his medications that Friday morning. No one talked to him on Friday, though his niece talked to him on Friday. She stated that he did talk to her on the phone, though did say something strange to the effect that he had been kidnapped and was in [place]. She stated that on Friday, which would be 01/11/2019 that she went by the house to check on him and found him to be completely naked without clothes on. He had urinated on himself and possibly had had loss of bowel on his clothes as well. She states he was completely confused and only knew his name, and was very weak. She did call the ambulance and have him brought to the ER. Upon initial evaluation in the ER, the ER staff reported that he was only alert and oriented to himself only. Though at the time of my examination, the patient was alert and oriented to person, place, and time. He was able to identify his niece and nephew at bedside. He was able to answer questions and follow commands. Though he could still tell that even though he was answering these questions appropriately that every now and then he would say something that did not make sense or was inappropriate. He also stated that he remembered seeing his nephew on Friday, though does not remember anything about Friday or Friday. The patient does have generalized weakness noted. He does have a tremor noted to bilateral hands as well. He does have some ataxia present as well. This does seem to be equally present in both extremities though other than this, he does not appear to have any other focal neurological deficits noted. He denies any numbness or tingling. The patient is not reporting any abdominal pain. Upon palpation, he did have generalized tenderness noted. He does have some slight trace edema noted in bilateral lower extremities. This is slightly worse in the left than the right extremity. Also, his niece reports that he has lost approximately 40 pounds over the last month as well. The patient denies any headache, dizziness, blurry or double vision. He denies chest pain, shortness of breath or cough. He denies any abdominal pain, nausea, vomiting, or diarrhea. He denies any dysuria and other than the trace edema noted in bilateral lower extremities, there is no other reported pain, numbness, tingling, or swelling in extremities. The patient evidently according to his niece does have some chronic back pain. I would also like to note that the patient was recently admitted at the end of September of 2018. He was transferred from our facility here to [facility]. During this visit, he was treated for some ventricular tachycardia. Though the nephew and his niece cannot completely elaborate about what he had done at [place], which may have possibly been a cardiac catheterization. We did note today in the ER upon his arrival that he does have a Life Vest defibrillator on though the battery does appear to be . It was not connected to the battery pack. Upon evaluation in the ER, urine drug screen was negative. Urinalysis did not show any signs of infection. His CT of the head did not show any acute intracranial abnormalities. His chest x-ray showed no evidence of acute disease as well. Though given his symptoms of confusion, weight loss, and weakness, we did go ahead and perform a CT of the chest, abdomen and pelvis with contrast which did not show any acute intrathoracic abdominal or pelvic findings. There was age- indeterminate which compression fracture deformities of the T9 and T8 vertebral bodies. There was an enlarged main pulmonary artery which was noted that could possibly be associated with hypertension. There were also some findings of emphysema. At this time, the patient will be placed for inpatient admission for further treatment and evaluation. REVIEW OF SYSTEMS: A 14 point review of systems was conducted with the patient, and all were negative except for pertinent positives mentioned above HPI. PAST MEDICAL HISTORY: 1. History of ventricular tachycardia. 2. History of coronary artery disease status post coronary artery bypass graft in 2016. The patient also reports that he has cardiac stents as well. 3. Hypertension. 4. Pulmonary embolism in 2013 on Eliquis for anticoagulation. 5. Gastroesophageal disease. 6. Chronic systolic congestive heart failure. 7. Hyperlipidemia. 8. Nicotine dependence. 9. Chronic back pain. PAST SURGICAL HISTORY: 1. Coronary artery bypass graft. 2. Ventral hernia repair. 3. Hemorrhoidectomy. 4. Bilateral cataract surgery. SOCIAL HISTORY: The patient does live by himself. He does have a niece and nephew who were present at bedside during my examination, who normally comes by every day and check on him. He had smoked half a pack a day since he was a very young age though his nephew states that due to increasing weakness, and limited mobility, that he only smokes approximately 3 cigarettes a day now. There is no known alcohol or illicit drug use. FAMILY HISTORY: Positive for diabetes mellitus. ALLERGIES: The patient has no known drug allergies. HOME MEDICATIONS: 1. Amiodarone 4 mg p.o. daily. 2. Norvasc 5 mg p.o. daily. 3. Aspirin 81 mg p.o. daily. 4. Welchol 620 mg p.o. b.i.d. 5. Vasotec 5 mg p.o. daily. 6. Zetia 10 mg p.o. daily. 7. [place] 10 mg 1 p.o. b.i.d. p.r.n. for pain. 8. Imdur 90 mg p.o. daily. 9. Toprol-XL 200 mg p.o. daily. 10. Omeprazole 20 mg p.o. b.i.d. 11. Also, it was noted that the patient normally does take Eliquis 5 mg p.o. b.i.d. as well though on his most recent discharge summary from September of 2018 this was held at the time of discharge due to he was being transferred to [facility] and was likely going to go cardiac catheterization after his arrival. DIAGNOSTIC: White blood cell count is 8320, hemoglobin 13.6, hematocrit 40.1, and platelet count 168,000. PT 16.3, INR 1.29, PTT is 30.9. Sodium 140, potassium 3.8, chloride 102, serum bicarb is 22, and BUN 28, creatinine 1.3 with GFR greater than 60. Glucose 111. Calcium 10.1, magnesium 1.4, total bilirubin 1.92. AST 33, ALT 20, alkaline phosphatase 96, CK 334, CK index 1.3, CKMB 4.29. Troponin 0.051. Arterial blood gases were obtained on room air. A pH is 7.46, pCO2 28, and PO2 68, HC03 22.6 with a base excess of -2.9. O2 saturation is 96.4. Urine drug screen was negative. Urinalysis is positive for protein. Ketones show a small amount of blood is negative for glucose, nitrates, leukocytes, white blood cells, or bacteria. EKG shows sinus tachycardia at a rate of 105 with QTc of 502. Chest x-ray showed no acute abnormality. CT of the head showed chronic ischemic white matter changes with no evidence of acute disease. Please see CT report for full detail finding. CT chest, abdomen, and pelvis with contrast showed no acute intrathoracic abdominal or pelvic findings. There was no mass identified. There was an age indeterminate wedge compression fracture deformities of T9 and T8 vertebral bodies with approximately 50% height loss. There was enlarged main pulmonary artery that can be associated with hypertension. There was also emphysema with mild diffuse bronchial wall thickening suggestive of smoking-related lung injury. Please see CT report for full detailed findings. PHYSICAL EXAMINATION: VITAL SIGNS: Temperature 98.7 degrees, heart rate 93, respirations 20, and blood 156/88. Oxygen saturation is 96 percent on room air. GENERAL: Mr. Avila is an elderly frail appearing 73 year old male. He was resting on the ER stretcher. He was in no acute distress. He was awake, alert and oriented to person, place, and time. He was able to follow commands though did seem to be confused about what occurred over the past 2 days, which would have been Friday and Friday, and occasionally would say something that did not make sense. HEENT: Head is atraumatic, normocephalic. Pupils are equal, round, and reactive to light, and were 3 mm bilaterally and brisk. Oral mucosa slightly dry. Oropharynx is clear. NECK: Supple. Trachea midline. No carotid bruits noted to auscultation bilaterally. CARDIOVASCULAR: Patient has S1, S2 present. There were no murmurs, gallops or rubs appreciated. He had a regular rate and rhythm. PULMONARY: The patient had symmetrical chest expansion bilaterally. Lungs sound clear to auscultation in bilateral vaz. ABDOMEN: Soft and nondistended though the patient did report some just generalized soreness upon palpation. Bowel sounds were present in all 4 quadrants. EXTREMITIES: No cyanosis noted though the patient does have clubbing noted to the nail beds of bilateral hands. He did have some trace edema noted in bilateral lower extremities. This was slightly worse on his left lower extremity when compared to the right. Pulse, motor and sensory were intact in all extremities. Radial and pedal pulses were 2+ bilaterally. INTEGUMENTARY: The patient's skin color is normal for his race, dry and intact. NEUROLOGIC: The patient is alert and oriented to person, place, and time. He is able to move all extremities. He is able to follow commands. He does have equal hand grasps bilaterally though does have generalized weakness noted. He also does have a tremor noted in bilateral hands as well. He does have some slight ataxia present though this does not seem to be equal bilaterally. He can move all 4 extremities. He is denying any visual disturbances, numbness or tingling in extremities. ASSESSMENT AND PLAN: 1. Encephalopathy. This does appear to have improved some since his arrival to the hospital compared to what family and even the ER staff was reporting upon his initial arrival. This could be multifactorial. The patient may have had a possible CVA. Given his recent history of ventricular tachycardia and the findings of him having a Life Vest defibrillator on as well he may have had a cardiac event or possible syncope that could be contributing to his encephalopathy. For further evaluation of this, we are going to order an MRI of the brain in the morning as well as carotid ultrasound echocardiogram. We will do repeat EKG, series of cardiac enzymes. We will do continuous cardiac telemetry with frequent vital signs and neurological checks. We have placed a consult with Neurology as well as cardiology. We will await their evaluation and further recommendations for management. We will continue to follow. 2. Weakness. We will continue with treatment as mentioned above for #1. We are ruling out possible CVA and/or cardiac event as well. We have placed orders for physical therapy evaluation. 3. Rule out CVA. We will continue with treatment as above for #1. 4. History of ventricular dysrhythmia. We will continue the patient's amiodarone as previously prescribed of 400 mg p.o. daily. He will be on continuous cardiac telemetry. His magnesium was slightly low at 1.4. We have replaced this, and will recheck his chemistries in the morning. 5. History of coronary artery disease status post CABG and cardiac stent placement. We will continue with his daily aspirin and regularly prescribed cardiac medications. We are awaiting cardiology's evaluation and further recommendations for management. 6. Hypertensive urgency. We are unsure of whether or not the patient took his blood pressure medications over the last 2 to 3 days, or this could be secondary to possible CVA. The patient did receive some labetalol IV in the ER. Since that time, his pressure has improved from initially being 207/99 to 156/88. We will allow for some permissive hypertension, though we are going to continue his blood pressure medicines though have reduced the dose by half. We will continue to follow closely. 7. History of pulmonary embolism. We will continue with Eliquis 5 mg p.o. b.i.d. 8. Deep vein thrombosis prophylaxis being provided with above-mentioned Eliquis. He has been placed on the PVC unit with continuous cardiac telemetry. He will have vital signs and neurological checks q.4 hours. We will do strict input and output. Incentive spirometry. He will be on a heart healthy diet. We have placed a case management and social services specialist consult as well. We are providing some gentle fluid hydration. The patient did receive 2 normal saline boluses in the ER. We will continue with 1 bag of fluids at 75 mL/h though we will monitor his intake and output closely. The patient does have a history of chronic systolic congestive heart failure. Further orders and recommendations pending hospital course, diagnostic studies, and physician evaluation. Dictated by HOLLY Gutierres for Mattie Bryson MD cc: Mattie Bryson MD [facility]
--- NOTE | 2019-01-12 07:09 | EKG Report ---
Test Performed on : 01/12/2019 06:58:39 AM Test Reason : Weakness Blood Pressure : / mmHG Vent. Rate : 091 BPM Atrial Rate : 091 BPM P-R Int : 144 ms QRS Dur : 118 ms QT Int : 434 ms P-R-T Axes : 053 062 118 degrees QTc Int : 533 ms Sinus rhythm. with marked sinus arrhythmia. Nonspecific intraventricular conduction delay Nonspecific ST and T wave abnormality Prolonged QT Abnormal ECG When compared with ECG of 11-JAN-2019 19:22, (Unconfirmed) Borderline criteria for Inferior infarct are no longer present Confirmed by Liz Kelly MD ([id number]) on 01/12/2019 8:30:59 AM
[2019-01-12 07:11] LABS: BASO# 0.01 X1000 (0.0-0.2); BASO% 0.1 % (0.0-0.8); EOS# 0.02 X1000 (0.0-0.7); EOS% 0.3 % (0.0-10.0); HEMATOCRIT 33.6 % (42.0-52.0); HEMOGLOBIN 11.3 g/dL (14.0-18.0); LYMPH# 0.99 X1000 (1.2-3.4); LYMPH% 12.4 % (20.5-51.1); MCHC 33.6 g/dL (33-37); MCV 86.4 FL (81-99); MONO# 1.11 X1000 (0.11-0.59); MONO% 13.9 % (1.7-9.3); NEUT# 5.86 X1000 (1.4-6.5); NEUT% 73.3 % (42.2-75.2); PLT 132 X1000 (130-400); RBC 3.89 XMIL (4.7-6.1); RDW 13.7 % (11.5-14.5); WBC 7.99 X1000 (4.8-10.8)
[2019-01-12 07:24] LABS: AGAP 12; ALB/GLOB RATIO 1.1; ALBUMIN 3.1 g/dL (3.5-5.0); ALKALINE PHOSPHATASE 73 U/L (32-122); BUN 23 mg/dL (8-22); CHLORIDE 109 mmol/L (98-107); COSMO 291; CREATININE 0.9 mg/dL (0.7-1.2); ESTIMATED GFR > 60; GLUCOSE 140 mg/dL (70-104); GOT 26 U/L (10-34); GPT 14 U/L (10-44); MAGNESIUM 1.6 mg/dL (1.5-2.7); POTASSIUM 3.4 mmol/L (3.5-5.1); SODIUM 143 mmol/L (136-145); TCO2 22 mmol/L (25-35); TOTAL BILIRUBIN 1.52 mg/dL (0.20-1.00)
--- NOTE | 2019-01-12 07:48 | Diag Imaging Result Doc PS360 ---
CT THORAX/ABD/PELVIS W/CON - 01/11/2019 INDICATION: AMS,Weight loss, cough, weakness COMPARISON: None FINDINGS: CHEST: There is no adenopathy. There is cardiomegaly. Ascending aorta measures 3.9 cm. Main pulmonary artery measures 3 cm. No aneurysm or acute vascular abnormality. There is moderate COPD. No infiltrates. There are some old compression fractures in the thoracic spine, at T8 and T9. Abdomen pelvis: Small bilateral renal cysts. The liver, gallbladder, spleen, pancreas, adrenals, and kidneys are normal. No bowel obstruction or inflammation. Avalos catheter in the urinary bladder which is collapsed. Prostate and rectum are normal. No free air or free fluid. There are moderate degenerative changes of the spine. No acute or suspicious bony lesion. IMPRESSION: Chronic changes as described above. This exam was performed using automated exposure control, adjustment of mA or kV according to patient size, and/or use of iterative reconstruction technique Electronically signed by Srinivas Mayer 01/12/2019 7:46 AM
[2019-01-12] MEDS: TOPROL XL PO SCH (08:34)
[2019-01-12] MEDS: VASOTEC PO SCH (08:34)
[2019-01-12] MEDS: NORVASC PO SCH (08:34)
[2019-01-12] MEDS: ELIQUIS PO SCH ×2 (08:35→20:30)
[2019-01-12] MEDS ORDERED: CORDARONE PO SCH (09:00)
--- NOTE | 2019-01-12 09:19 | Diag Imaging Result Doc PS360 ---
MRI BRAIN W/O CONTRAST - 01/12/2019 INDICATION: Weakness,Encephalopathy,R/O CVA COMPARISON: Head CT 01/11/2019 FINDINGS: There is no area of restricted diffusion. There is overall mild cerebral atrophy. There is moderate chronic microvascular disease in the periventricular white matter and the basal ganglia. No intracranial mass or hemorrhage. Midline structures are unremarkable. IMPRESSION: No acute disease. Electronically signed by Srinivas Mayer 01/12/2019 9:16 AM
[2019-01-12] MEDS ORDERED: KLOR-CON PO ONE (10:48)
[2019-01-12] MEDS ORDERED: MAGNESIUM SULFATE 4 GM/S.W.I. 4 GM/100 ML IVPB IV ONE (11:01)
[2019-01-12 12:24] LABS: TSH 0.01 uIUmL (0.27-4.20)
[2019-01-12 12:26] LABS: FREE T4 2.57 ng/dL (0.93-1.70)
--- NOTE | 2019-01-12 12:59 | CARDIOLOGY CONSULTATION ---
DATE: 01/12/2019 CONSULTATION REQUESTED BY: Hospitalist Service. PRIMARY RUN BOAT OPERATOR: Dr. Card. PRIMARY CARE PHYSICIAN: The patient has no primary care physician on record. CHIEF COMPLAINT: Weakness, mental status changes. HISTORY: Mr. Avila is a 73-year-old black gentleman, who was brought to the emergency room by his family yesterday at about 6 p.m. after being found very confused, sitting at home. The patient had been contacted by family, probably 24 to 48 hours prior to that, where he reported some inconsistencies. Upon being found, he was weak, disoriented, and he was brought to the ER. In the ER they did basic evaluation, including blood gases showed pH of 7.46, CO2 of 28, PO2 of 68. BUN was 28, creatinine 1.3. Potassium was normal. Magnesium was low at 1.4. Urinalysis showed no signs of infection. Chest x-ray showed no evidence of acute disease. A 12 lead electrocardiogram showed sinus tachycardia with nonspecific ST-wave abnormality and inferior scar. The patient did not complain of any chest pain. I am seeing him at 11:30 a.m. on January 12. He is able to open his eyes. He tells me a few things like he has 3 children, 1 in [place] and 2 in [place]. He tells me that his 3 years ago and he retired from [employer], that is as far as he can go. He appears to be very sluggish, and it takes him a long time to come up with the answer. PAST HISTORY: Positive for severe coronary heart disease. He has had previous multivessel bypass surgery several years ago. Over the course of the years, they have done a followup heart catheterization. The last one that we have on record from 2015 indicated that his mammary artery graft was patent. All of his vein grafts were occluded. His [place] disease was not amenable to intervention. Medical therapy was suggested. Subsequently, he has developed paroxysmal ventricular tachycardia. He has undergone ablation for ventricular tachycardia. Currently, he is wearing a life vest. We do not know at the time of this dictation if the device has been activated during the past few days. He has had a pulmonary embolus in 2013, hypertension, hyperlipidemia. There has been a question of hyperthyroidism in the past, acid reflux. SURGICAL HISTORY: Includes ventral hernia repair, hemorrhoidectomy, cataract extraction and a coronary bypass procedure. SOCIAL HISTORY: He is a . He lives by himself. He has 2 sons living in [place], 1 in [place]. He retired after 29 years of work from [employer]. He does not smoke cigarettes, does not drink alcohol. FAMILY HISTORY: Positive for sudden in parents. HOME MEDICATIONS: At the time of this dictation include amiodarone 400 daily, amlodipine 5 mg daily, aspirin 81 mg daily, Welchol 625 mg twice a day, Vasotec 5 mg daily, Zetia 10 mg daily, isosorbide mononitrate 90 mg daily, metoprolol XL 200 daily, omeprazole 20 mg twice a day. ALLERGIES: Negative. REVIEW OF SYSTEMS: Review of systems is not obtainable. The patient is really not coherent enough and awake enough to provide me with any meaningful information. His last visit with Dr. Card took place in January of 2018. Since then, he has been followed by the Electrophysiology Service. His ejection fraction according to last echo that we have on record was in the range of 30 to 35 percent. PHYSICAL EXAMINATION: Vital signs: Blood pressure 151/93, temperature 97.9 degrees, respirations 18, pulse is 71 beats per minute. General: He is elderly, frail looking. BMI is 16.4. His eyes are somewhat bulging out. He appears to be malnourished. HEENT: No jugular venous distention. No cervical bruits. Chest: Reveals some diminished breath sounds at the base of the patient on the left side. Heart: Sounds are regular, rhythmic. I do not hear a gallop or murmur or irregular beats. Abdomen: Nontender. There is no hepatomegaly. No bruits noted. Extremities: Showed trace edema bilateral with decreased pulses. Skin: No skin rash. No varicose veins. Neurological exam: Again, he appears to be sluggish to answer. He appears to be generally weak. Follows some commands. He cannot sit up by himself and needs assistance. IMPRESSION: 1. Patient who presents with confusional state. He could be in a postictal state. It is possible that he may have had syncope or seizure. The possibility of ventricular tachycardia having been treated by his LifeVest cannot be excluded. 2. Severe coronary heart disease, multiple bypass surgery with occluded grafts. 3. Chronic systolic heart failure. 4. History of ischemic cardiomyopathy. 5. History of pulmonary embolism. 6. History of hypertension and acid reflux. 7. Malnourished. RECOMMENDATION: At this time we will try to interrogate the LifeVest device. We assume that he had it on when he was found by the family. If that vest shows no evidence of arrhythmia, then we may want to consider doing an EEG, perhaps a Neurology evaluation. Head CT was done on presentation. It showed chronic ischemic white matter changes. Brain MRI was done today, reportedly shows no acute disease. We will follow him at this time. I do not foresee performing any specific cardiac assessment, other than perhaps a limited echocardiographic study. cc: Jose Maria Nolan MD
[2019-01-12] MEDS ORDERED: LOPRESSOR PO SCH (14:00)
--- NOTE | 2019-01-12 15:01 | CONSULTATION ---
DATE OF CONSULTATION: 01/12/2019 REASON FOR CONSULTATION: Altered mental status. HISTORY OF PRESENT ILLNESS: This is a 73-year-old male who was admitted yesterday evening after he was found confused. History is from the patient's family, who is at the bedside. The patient lives alone. He needs help with his medications and other activities of daily living. Apparently, he has someone from the family check in on him daily, but the family states no one saw him between Friday evening until Friday evening. There are some inconsistencies with the history. Basically, he was well on Friday, in his usual state of health when they left him. The niece spoke to him on the phone, I believe on Friday, and he seemed confused at that time, stating that he was in [place]. On Friday evening she decided to go and check on him, and that is when she found him sitting on his sofa, naked and confused. His weekly medication pill box indicated that he had not taken his medications on Friday, and also there were pills remaining over the weekend as well. On arrival, his blood pressure was 207/99, pulse was 103, and he was afebrile. Head CT did not show acute findings. Brain MRI also did not show acute findings. The patient has been restarted on medications, and family notes that he has shown significant improvement compared to when he initially came in, though they are not certain he is entirely back to baseline. The family has noted some general slowing down over the last number of years. They felt like his memory was pretty good in general, but he does need help with several things at home. For several years now, he has had more limited mobility. He often needs help getting to standing position. He has a difficult time walking, and takes slow, short strides. He does continue to drive his car to nearby locations. Again, he lives alone. PAST MEDICAL/SURGICAL HISTORY: Coronary artery disease status post CABG in 2016, cardiac stents per their report, hypertension, history of pulmonary embolism in 2014, hyperlipidemia, paroxysmal ventricular tachycardia status post ablation, he is wearing a LifeVest, but apparently the battery was when he came into the hospital, possible hyperthyroidism, cataract surgery. FAMILY HISTORY: Includes diabetes and hypertension. SOCIAL HISTORY: He smokes. No alcohol or illicit drugs. He lives alone. He is . He has family who check on him frequently. He continues to drive a car. ALLERGIES: No known drug allergies listed. HOME MEDICATIONS: Reviewed in the chart. REVIEW OF SYSTEMS: Balance of twelve was conducted and is otherwise negative, except for that detailed in the HPI. PHYSICAL EXAMINATION: Vital Signs: Blood pressure was above 200 on admission, current 138/78, pulse 80s, afebrile, respirations 20, saturating 100% on room air. General: Mr. Avila is supine in bed with head of bed elevated. He is eating lunch. Neurologic: He is awake, alert, reasonably attentive. His movements and responses are relatively slowed. Facial motility is reduced. He follows simple commands only. No obvious language abnormality. He tells me he is at the hospital. He thought it was [place] initially. He knows his family members. States his name. Does not know the year or date, but does know it is the month of December. He says December is the anniversary of his 's . He did not know the year, nor the President. Pupils are equal, round, and reactive. Gaze is conjugate forward. Extraocular movements are full. Face symmetric with equal activation. Again, there is reduced facial motility overall. Tongue is midline. Palate elevates symmetrically. Facial sensation reported intact. Blinks to threat. Shoulder shrug is full. He is not attentive enough to test for drift. There are no adventitious movements. Tone appears symmetric in the limbs. There is some cogwheeling bilaterally in the upper extremities. No resting tremor. Lower extremities with increased tone as well. Finger-to- nose is symmetric, slowed, but accurate. Rapid alternating movements are slowed bilaterally, right possibly more than left. Power is good in the arms and legs as tested. Reflexes are 1+ at the wrists bilaterally. Absent ankle jerks. No clonus. Plantar response is downgoing. He reports symmetric sensation to light touch in the arms and legs. I did not test his gait. IMAGING AND LABORATORY DATA: MRI of the brain, personally reviewed. There are no acute findings. There are [id number] chronic microvascular ischemic changes in the periventricular white matter and basal ganglia. There is some mild general cerebral atrophy. Head CT: No acute findings. Normal white count. BUN 28, creatinine 1.3 on admission. Today, 23 and 0.9. Blood sugars 111 to 140. Normal calcium. Magnesium normal today. AST and ALT normal. Ammonia normal. TSH 0.01. Free T4 of 2.57. Urinalysis and toxicology reviewed. ASSESSMENT AND PLAN: Recent global encephalopathy or confusional state with evidence of improvement since admission. I suspect this may be multifactorial and related to missed medications over the weekend while he was unattended. There may have been a resultant trend toward hypertensive encephalopathy. Given his history, however, I think it is very reasonable to look into whether or not his LifeVest picked up on anything, and also I will perform a routine electroencephalogram to look for evidence of increased propensity to seizure. Lastly, he appears to have some parkinsonism, though this can be difficult to assess in the acute hospitalized setting, and I would suggest that he have outpatient evaluation for this once he is back to baseline. Physical Therapy/Occupational Therapy for evaluation. Thank you for this consultation. cc: Ange Hinton MD MTDD
--- NOTE | 2019-01-12 15:27 | PROGRESS NOTE ---
DATE: 01/12/2019 SUBJECTIVE: Patient has no major complaints. OBJECTIVE: Blood pressure is 138/78, heart rate of 81, respiratory rate 20, temperature 97.8 degrees, 100% on room air.Cardiovascular: Regular rate and rhythm. Pulmonary: Bilateral breath sounds clear to auscultation. GI: Was soft, nontender, nondistended. Bowel sounds are positive. White count 7.9, hemoglobin and hematocrit 11 and 33, platelets 132,000, potassium 3.4. TSH was 0.012, free T4 is 2.57. PROBLEM LIST: 1. Encephalopathy. This may be multifactorial. He has multiple reasons for this at this point. Neurology has been consulted. I think Dr. Villagran has seen the patient, but EEG has been ordered to rule out seizure and we will await neurology input. He also has hyperthyroidism and he also has, I feel, symptomatic carotid stenosis. 2. History of ventricular tachycardia. We will continue to monitor closely. He has been on amiodarone and Toprol. I am concerned the amiodarone may be causing some hyperthyroid issues, so we are going to hold the amiodarone and repeat his thyroid function tests and monitor. 3. Carotid stenosis. He is on aspirin and Eliquis. We will get a surgical consult although I do not think he is, at this point, a great surgical candidate with ventricular tachycardia issues but we will continue to follow closely. cc: Javad Jacobs MD
--- NOTE | 2019-01-12 16:20 | ECHO REPORT ---
ORDER DATE: 01/12/2019 INTERPRETING PHYSICIAN: Dr. Leonel Card ECHOCARDIOGRAPHIC MEASUREMENTS: 1. Interventricular septum 1.1. 2. Left ventricular posterior wall 0.9. 3. Diastolic diameter 5.2. 4. Left atrium 4.3. FINDINGS: 1. Mitral valve was normal. There is mitral annular calcification. 2. Aortic valve leaflets are trileaflet. 3. There is left atrial enlargement. 4. Mitral valve was normal. 5. Tricuspid valve was normal. 6. Normal left ventricular cavity size. Estimated ejection fraction of 30% to 35%. 7. There is anteroseptal apical hypokinesis. In addition, inferoapical hypokinesis. This is a change from previous echocardiogram done on 10/02/2018. 8. There is no pericardial effusion. cc: MD Nubia Brito PA
[2019-01-12] MEDS: WELCHOL PO SCH (20:31)
[2019-01-12] MEDS: PRILOSEC PO SCH (20:31)
[2019-01-12] MEDS: NORCO-10 PO PRN (22:21)
[2019-01-13 07:29] LABS: BASO# 0.01 X1000 (0.0-0.2); BASO% 0.1 % (0.0-0.8); EOS# 0.25 X1000 (0.0-0.7); EOS% 3.3 % (0.0-10.0); HEMATOCRIT 32.7 % (42.0-52.0); HEMOGLOBIN 10.8 g/dL (14.0-18.0); LYMPH# 1.68 X1000 (1.2-3.4); MCH 29.3 PG (27-31); MCV 88.6 FL (81-99); MONO# 0.91 X1000 (0.11-0.59); MONO% 11.9 % (1.7-9.3); MPV 11.6 FL (7.4-10.4); NEUT% 62.7 % (42.2-75.2); PLT 132 X1000 (130-400); RBC 3.69 XMIL (4.7-6.1); WBC 7.65 X1000 (4.8-10.8)
[2019-01-13 07:49] LABS: AGAP 7; BUN 26 mg/dL (8-22); CALCIUM 8.8 mg/dL (8.8-10.2); CHLORIDE 110 mmol/L (98-107); COSMO 284; CREATININE 1.1 mg/dL (0.7-1.2); ESTIMATED GFR > 60; GLUCOSE 103 mg/dL (70-104); MAGNESIUM 2.2 mg/dL (1.5-2.7); POTASSIUM 3.9 mmol/L (3.5-5.1); SODIUM 140 mmol/L (136-145); TCO2 23 mmol/L (25-35)
[2019-01-13 07:59] LABS: TSH 0.01 uIUmL (0.27-4.20)
[2019-01-13 08:00] LABS: FREE T4 2.25 ng/dL (0.93-1.70)
--- NOTE | 2019-01-13 08:22 | Carotid Study ---
DATE: 01/12/2019 PROCEDURE PERFORMED: Bilateral duplex color flow imaging of the carotid arteries performed using the GE Vivid E9 ultrasound System with a 9L-D transducer. REFERRING PHYSICIAN: Dr. Jacobs. PATIENT IDENTIFICATION: A 73-year-old male. [employer] MANAGER: Jeanette Bates RVT. INDICATION: Encephalopathy and weakness. FINDINGS: The right ICA/CCA ratio is 1.10, corresponding to a percent stenosis of 0 to 39 percent. The left ICA/CCA ratio 6.68, corresponding to a percent stenosis of 80 to 99 percent. INTERPRETATION: Critical stenosis at the takeoff of the left internal carotid artery which is hemodynamically significant. There is only mild atherosclerotic disease involving the right carotid system without evidence of a hemodynamically significant lesion on that side. cc: Marianne Solis MD
[2019-01-13] MEDS: WELCHOL PO SCH ×2 (08:27→20:21)
[2019-01-13] MEDS: ASPIRIN EC PO SCH (08:27)
[2019-01-13] MEDS: NORVASC PO SCH (08:27)
[2019-01-13] MEDS: VASOTEC PO SCH (08:27)
[2019-01-13] MEDS: ELIQUIS PO SCH ×2 (08:27→20:21)
[2019-01-13] MEDS: TOPROL XL PO SCH (08:27)
--- NOTE | 2019-01-13 08:27 | CARDIOLOGY PROGRESS NOTE ---
DATE: 01/13/2019 CHIEF COMPLAINT: Confusion, weakness, weight loss, listlessness. SUBJECTIVE: Mr. Avila is a little more awake today. He was already seen by the neurologist, Dr. Villagran yesterday. He believe that he may be in some sort of an encephalopathic state. Echocardiogram was done yesterday and it shows that his ejection fraction has dropped some from 30 to 35%. There has been no evidence of ventricular tachycardia documented by analysis of his LifeVest device. The patient is not complaining of any pain. He speaks slowly. PHYSICAL EXAMINATION: VITAL SIGNS: Blood pressure 114/58, temperature 98.6 degrees, pulse 74, respirations 17. GENERAL: He appears to be emaciated. He is sluggish. He is generally weak. HEENT: No jugular venous distention. CHEST: Shows slightly diminished breath sounds especially in the left lung. HEART: Sounds are regular rhythmic. There is a soft systolic murmur. ABDOMEN: Nontender. EXTREMITIES: Show decreased pulses, trace edema. NEUROLOGICAL: Generally weak, sluggish. Responds appropriately. BLOOD WORK: Sodium 143, potassium 3.4, BUN 23, creatinine 0.9. Of note, his troponins have been checked 3 times. They are in the "valdivia zone", 0.051, 0.069, and 0.056. His TSH is very low, 0.1 micro international units per mL. His free T4 on the other hand is high, it is 2.57 nanograms per dL. This suggests hyperthyroidism. IMPRESSION: 1. Patient who presented to the hospital with a confusional state. This is unclear as to what is the etiology. He is behaving like a global encephalopathy although today appears to be better. 2. Evidence of hyperthyroidism on the blood work. The patient could have a special form of hyperthyroidism that is called "apathetic hyperthyroidism." This may require consultation with a specialist in [place].The hyperthyroidism could relate to the fact that he was taking amiodarone and that medication has been discontinued at this time. 3. Chronic systolic heart failure. 4. History of ventricular tachycardia. 5. Severe coronary heart disease with previous coronary bypass surgery and occlusion of grafts. 6. Malnutrition. 7. History of pulmonary embolism. 8. Hypokalemia. RECOMMENDATIONS: At this time, I would suggest to try to optimize this patient's nutritional status. I would recommend his case to an glassware defect repairer in [place]. Cardiac goodwin, as long as we do not identify nor document any ventricular tachycardia, we will observe course. His metabolic status needs to be resolved before proposing any further intervention. We will follow him as needed. cc: Jose Maria Nolan MD MTDD
[2019-01-13] MEDS: PRILOSEC PO SCH ×2 (08:28→20:21)
--- NOTE | 2019-01-13 14:22 | EEG REPORT ---
DATE: 01/12/2019 REFERRING PHYSICIAN: Ange Hinton. GEOTECHNICIAL PROPERTIES TECHNICIAN: Marianela Brooks. BACKGROUND INFORMATION AND TECHNIQUE: This is a digitally recorded routine EEG with video. HISTORY: A 73-year-old male with altered mental status. EEG is ordered to detect evidence of seizure. EEG FINDINGS: A brief 8.5 to 9 Hz posterior dominant alpha rhythm is seen symmetrically in the occipital regions. The background consists of 7 hertz theta slowing. Some faster frequencies are intermixed. No definite persistent focal slowing. No epileptiform discharges. No seizures. Hyperventilation is not performed. Photic stimulation induces a normal driving response. The patient is briefly drowsy but stage II sleep is not seen. EKG demonstrates regular intervals. IMPRESSION AND CLINICAL CORRELATION: Abnormal routine EEG due to very mild diffuse slowing suggestive of a very mild nonspecific encephalopathy. No epileptiform discharges or seizures seen on the current study. This does not rule out an underlying seizure disorder. Clinical correlation is recommended. cc: Ange Hinton MD MTDD
--- NOTE | 2019-01-13 17:47 | PROGRESS NOTE ---
DATE: 01/13/2019 SUBJECTIVE: No major overnight events. The family reports he continues to show improvement with regards to his mental status. OBJECTIVE: Afebrile. Blood pressure 151/87, pulse 60. Mr. Avila is supine in bed with head of bed elevated. He looks brighter to me today. He is awake, alert, and more attentive. His responses still seem relatively slowed, but I think there has been improvement there. At one point, he even makes a joke and laughs. He is oriented to location, month, and the president but again, did not know the year. He follows simple commands. No obvious language abnormality. Pupils equal, round, and reactive. Gaze conjugate. Ocular movements full. Face symmetric with equal activation with reduced facial motility overall. No resting tremor noted. EEG personally reviewed. Very mild diffuse slowing suggestive of a very mild nonspecific encephalopathy. No epileptiform discharges or seizures. Carotid Doppler showing critical stenosis at the takeoff of the left internal carotid artery which is hemodynamically significant. Only mild atherosclerotic disease involving the right carotid system without evidence of a hemodynamically significant lesion. ASSESSMENT AND PLAN: 1. Recent global encephalopathy or confusional state with evidence of continued improvement since admission. Multifactorial. Clinical improvement, lack of acute findings on brain MRI, and lack of epileptiform findings on EEG are reassuring. I would continue treating his toxic metabolic disturbances and see how he does. 2. Critical stenosis in the left internal carotid artery. Agree with the surgical consult as has already been ordered. Continue aspirin. I see he is also on Eliquis. cc: Ange Hinton MD
[2019-01-13] MEDS: NORCO-10 PO PRN (21:30)
[2019-01-14] MEDS: ASPIRIN EC PO SCH (10:10)
[2019-01-14] MEDS: PRILOSEC PO SCH ×2 (10:11→21:10)
[2019-01-14] MEDS: NORVASC PO SCH (10:11)
[2019-01-14] MEDS: VASOTEC PO SCH (10:11)
[2019-01-14] MEDS: TOPROL XL PO SCH (10:12)
[2019-01-14] MEDS: WELCHOL PO SCH ×2 (10:12→21:10)
[2019-01-14] MEDS: ELIQUIS PO SCH ×2 (10:12→21:10)
--- NOTE | 2019-01-14 14:25 | PROGRESS NOTE ---
DATE: 01/14/2019 Mr. Avila appears to be resting comfortably in bed. There are several family members gathered at the bedside. There is report of relatively minor baseline forgetfulness. There is question of parkinsonism. Dr. Hinton saw him for neurology evaluation yesterday. The EEG showed generalized slowing. Brain CT and MRI scans show nothing acute. Discussed with family possibility that there will be some spontaneous improvement in cognitive function when he returns to familiar surroundings. In light of his stable course, I think the best management would be to consider outpatient evaluation of cognitive function and parkinsonism. If he and family and primary provider prefer, I will be glad to see him in the office for that. No other suggestions from neurology and no recommendation for change in hospital management today. Thanks for asking us to see Mr. Avila. cc: MD ADOLFO Francis III
--- NOTE | 2019-01-14 17:58 | PROGRESS NOTE ---
DATE: 01/14/2019 SUBJECTIVE: The patient has no major complaints. OBJECTIVE: Vital Signs: Blood pressure 122/69, heart rate 86, respiratory rate 18, temperature 98.1, 95% on room air. Cardiovascular: Regular rate and rhythm. Pulmonary: Bilateral breath sounds, clear to auscultation. GI: Soft, nontender, nondistended. Bowel sounds are positive. LABORATORY DATA: White count 7, hemoglobin and hematocrit 10 and 32, platelets 132. Basic was normal. BUN and creatinine 26 and 1.1. PROBLEM LIST: 1. Encephalopathy which overall has improved. He has had multiple issues with this previously. I think Dr. Hinton has seen the patient and does not feel this is related to his carotid stenosis. Not clear that it is seizures either. We will continue to monitor. 2. Ventricular tachycardia that has resolved. The LifeVest interrogation revealed no ectopy. We have stopped amiodarone, and I am not sure what Cardiology will feel to replace it with. He is on metoprolol, and he seems to be doing okay. 3. Carotid stenosis. He has a high-grade stenosis at the left internal carotid that was 80% to 99% on the left, and I am waiting for a vascular evaluation. DISPOSITION: I anticipate discharge when rehab is stabilized. We will follow. cc: Javad Jacobs MD
[2019-01-14] MEDS: NORCO-10 PO PRN (21:10)
[2019-01-15 07:47] LABS: BASO# 0.01 X1000 (0.0-0.2); BASO% 0.2 % (0.0-0.8); EOS# 0.18 X1000 (0.0-0.7); EOS% 2.9 % (0.0-10.0); HEMATOCRIT 34.1 % (42.0-52.0); HEMOGLOBIN 11.3 g/dL (14.0-18.0); LYMPH# 1.41 X1000 (1.2-3.4); LYMPH% 22.6 % (20.5-51.1); MCHC 33.1 g/dL (33-37); MCV 87.7 FL (81-99); MONO# 0.87 X1000 (0.11-0.59); MONO% 13.9 % (1.7-9.3); MPV 11.6 FL (7.4-10.4); NEUT# 3.78 X1000 (1.4-6.5); NEUT% 60.4 % (42.2-75.2); PLT 163 X1000 (130-400); RBC 3.89 XMIL (4.7-6.1); RDW 13.4 % (11.5-14.5); WBC 6.25 X1000 (4.8-10.8)
[2019-01-15 08:14] LABS: AGAP 9; BUN 29 mg/dL (8-22); CALCIUM 9.5 mg/dL (8.8-10.2); CHLORIDE 104 mmol/L (98-107); COSMO 283; ESTIMATED GFR > 60; GLUCOSE 128 mg/dL (70-104); POTASSIUM 3.7 mmol/L (3.5-5.1); SODIUM 138 mmol/L (136-145); TCO2 25 mmol/L (25-35)
[2019-01-15] MEDS: WELCHOL PO SCH ×2 (09:51→20:25)
[2019-01-15] MEDS: VASOTEC PO SCH (09:52)
[2019-01-15] MEDS: TOPROL XL PO SCH (09:52)
[2019-01-15] MEDS: ELIQUIS PO SCH ×3 (09:52→20:26)
[2019-01-15] MEDS: PRILOSEC PO SCH ×2 (09:52→20:25)
[2019-01-15] MEDS: ASPIRIN EC PO SCH (09:53)
[2019-01-15] MEDS: NORVASC PO SCH (09:53)
--- NOTE | 2019-01-15 10:13 | CONSULTATION ---
DATE OF CONSULTATION: 01/15/2019 HISTORY OF PRESENT ILLNESS: Mr. Lavon Avila is a 73-year-old -[place] male who presented to our emergency department on 01/11/2019 with history of confusion. Evidently he was confused at home and for the last 3 days was sitting on the couch even in his own bodily fluids. He was found naked on the couch in his urine and feces. He was admitted for further evaluation. Part of his evaluation was carotid studies which shows a significant stenosis left carotid artery of 80% and we were asked to evaluate him. He has had a head CT and also a brain MRI which shows no evidence of acute stroke. He has been seen by Neurology which suggests he may have Parkinson's but evaluation will be necessary. His encephalopathy or confusion state could have been related to missed medications and multifactorial. He has had no evidence of acute stroke. PAST MEDICAL HISTORY: Coronary artery bypass grafting in 2016, known coronary artery disease in the past with cardiac stents, hypertension, history of pulmonary embolus, hyperlipidemia, paroxysmal ventricular tachycardia status post ablation, cataract surgery. FAMILY HISTORY: Diabetes, hypertension. SOCIAL HISTORY: He is a smoker. He lives alone. He is . He does have family who checks on him. He continues to drive at times. ALLERGIES: No known drug allergies. HOME MEDICATIONS: Reviewed. It does include blood thinner because of his cardiac disease. REVIEW OF SYSTEMS: A 14 point review of systems was performed. It was difficult to get but seems to be essentially negative except for this history of present illness. PHYSICAL EXAMINATION: General: On exam Mr. Avila is an older slim black male who is sitting up, seems attentive. He has nasal cannula on. HEENT: He has no jaundice. No oral lesions. Satisfactory dentition. Lymphatics: No cervical or supraclavicular lymphadenopathy. Cardiac: His heart has an irregular rate. Respiratory: Lungs were clear. GI: Abdomen was soft without tenderness. Rectal: Rectal exam was not performed. Extremities: He does have palpable femoral and peripheral pulses. Neurological: He has no focal deficit. DATA: Carotid studies suggested an 80% stenosis left internal carotid artery proximally. Brain MRI and CT scan suggests no evidence of acute stroke as does his exam. IMPRESSION: He has improved since his hospitalization. I think the plan is to discharge him to physical therapy and try to get him back to baseline and also further evaluate him for Parkinson's. I do feel that it is reasonable to consider a left carotid endarterectomy electively and so he will need an appointment in our outpatient offices after rehab. I discussed this with the patient and the family member at the bedside today. cc: Marianne Solis MD
--- NOTE | 2019-01-15 15:30 | PROGRESS NOTE ---
DATE: 01/15/2019 SUBJECTIVE: Patient has no major complaints. OBJECTIVE: Vital Signs: Blood pressure is on the low side 90s/60s. Heart rate is 72, respiratory rate 16, temperature 98.6 degrees, and 100% on room air. Cardiovascular: Regular rate rhythm. Pulmonary: Bilateral breath sounds clear to auscultation. Gastrointestinal: Soft, nontender, nondistended. Bowel sounds are positive. LABORATORY DATA: White count 6, hemoglobin and hematocrit of 11 and 34, platelets 163,000. Basic was normal. PROBLEM LIST: 1. Encephalopathy. He seems to be stabilizing or at least close to baseline, although he is very, very weak. 2. Ventricular tachycardia. Currently he is on metoprolol, and we will continue to follow. He does not need the LifeVest replaced, and he does not qualify for a pacemaker at this point. 3. Carotid stenosis, high-grade stenosis on the left. Plan for vascular intervention once he is a bit stronger. He will follow up with Dr. Solis as an outpatient. 4. Amiodarone presumably induced hyperthyroidism. I will complete his thyroid labs. I have initiated prednisone, and we will follow. Clinically he does not appear to me to have underlying Graves, but we will check labs and follow. We cannot do a radioactive iodine uptake scan because he has had a CT, and that will have to be done separately. cc: Javad Jacobs MD
[2019-01-15] MEDS: PREDNISONE PO SCH (16:16)
[2019-01-15] MEDS ORDERED: TEARISOL OPH SOLUTION BOTH EYES PRN (17:18)
--- NOTE | 2019-01-15 17:19 | Diag Imaging Result Doc PS360 ---
EXAM: US SOFT TISSUE HEAD/NECK INDICATION: hyperthyroidism TECHNIQUE: COMPARISON: None. FINDINGS: The patient was uncooperative with the exam due to mental status. As such, this study is severely limited. There is at least one circumscribed hypoechoic nodule in the right and left thyroid lobes. Both nodules measure approximately 3 mm and are of doubtful significance. No other cystic or solid lesions are identified given the significant limitations of this study. IMPRESSION: 1.Markedly limited study for the reasons discussed above. 2.A couple of tiny hypoechoic nodules bilaterally that may represent mild multinodular goiter. Electronically signed by Todd Guajardo 01/15/2019 5:17 PM
[2019-01-15] MEDS: OCUFLOX 0.3% OPH SOLUTION LEFT EYE SCH (20:27)
[2019-01-15] MEDS: NON-FORMULARY BULK MED BOTH EYES SCH (20:31)
[2019-01-15] MEDS: NORCO-10 PO PRN (20:41)
[2019-01-16] MEDS: OCUFLOX 0.3% OPH SOLUTION LEFT EYE SCH ×4 (02:38→20:44)
[2019-01-16 07:26] LABS: BASO# 0.01 X1000 (0.0-0.2); BASO% 0.1 % (0.0-0.8); EOS# 0.01 X1000 (0.0-0.7); EOS% 0.1 % (0.0-10.0); HEMATOCRIT 33.6 % (42.0-52.0); HEMOGLOBIN 11.2 g/dL (14.0-18.0); LYMPH# 1.07 X1000 (1.2-3.4); LYMPH% 15.8 % (20.5-51.1); MCH 29.1 PG (27-31); MCHC 33.3 g/dL (33-37); MCV 87.3 FL (81-99); MONO% 7.4 % (1.7-9.3); MPV 11.6 FL (7.4-10.4); NEUT% 76.6 % (42.2-75.2); PLT 164 X1000 (130-400); RBC 3.85 XMIL (4.7-6.1); RDW 13.4 % (11.5-14.5); WBC 6.79 X1000 (4.8-10.8)
[2019-01-16 07:49] LABS: POTASSIUM 4.3 mmol/L (3.5-5.1); SODIUM 142 mmol/L (136-145)
[2019-01-16 07:50] LABS: AGAP 10; BUN 36 mg/dL (8-22); CALCIUM 9.1 mg/dL (8.8-10.2); CHLORIDE 109 mmol/L (98-107); COSMO 295; CREATININE 0.9 mg/dL (0.7-1.2); ESTIMATED GFR > 60; GLUCOSE 161 mg/dL (70-104); TCO2 23 mmol/L (25-35)
--- NOTE | 2019-01-16 08:01 | Diag Imaging Result Doc PS360 ---
EXAM: CHEST-PORTABLE INDICATION: dyspnea TECHNIQUE: One view COMPARISON: 01/11/2019 FINDINGS: The lungs remain grossly clear. There is no discrete pleural fluid collection or pneumothorax. The cardiac silhouette is stable. IMPRESSION: Stable chest with no definite acute pathology by plain radiograph. Electronically signed by Todd Guajardo 01/16/2019 7:59 AM
[2019-01-16] MEDS: NON-FORMULARY BULK MED BOTH EYES SCH ×2 (09:18→20:44)
[2019-01-16] MEDS: PREDNISONE PO SCH (09:20)
[2019-01-16] MEDS: ASPIRIN EC PO SCH (09:20)
[2019-01-16] MEDS: TOPROL XL PO SCH (09:20)
[2019-01-16] MEDS: WELCHOL PO SCH ×2 (09:20→21:21)
[2019-01-16] MEDS: VASOTEC PO SCH (09:20)
[2019-01-16] MEDS: ELIQUIS PO SCH ×2 (09:20→21:21)
[2019-01-16] MEDS: PRILOSEC PO SCH ×2 (09:20→21:21)
[2019-01-16] MEDS ORDERED: MAGNESIUM SULFATE 2 GM/S.W.I. 2 GM/50 ML IVPB IV ONE (11:32)
--- NOTE | 2019-01-16 13:47 | PROGRESS NOTE ---
DATE: 01/16/2019 SUBJECTIVE: Patient has no major complaints. He is still very kind of tired. OBJECTIVE: Vital signs: Blood pressure 144/78, heart rate of 76, respiratory rate of 15, temperature 97.7 degrees, 94% on room air. Cardiovascular: Regular rate and rhythm. Pulmonary: Bilateral breath sounds clear to auscultation. Gastrointestinal: Soft, nontender, nondistended. Bowel sounds are positive. LABORATORY DATA: His white count is 6, hemoglobin and hematocrit 11 and 33, platelets 164,000. Basic: Potassium 4.3, creatinine 0.9, mag 1.4. Chest x-ray is clear. PROBLEM LIST: 1. Intermittent encephalopathy. He is still very weak but overall stable. Will continue working with Physical Therapy. His physical therapy note from yesterday shows very, very weak, just very weak. In any case, patient seems to be stable. 2. Ventricular tachycardia. He is on metoprolol. We will continue to monitor. He had been on amiodarone which was discontinued because of the thyrotoxicosis, although it is not 100% clear that is what caused thyrotoxicosis. Labs are in play. 3. Carotid stenosis, left high-grade. We will continue treatment. He is on Eliquis and aspirin and arrange vascular follow-up. 4. Hyperthyroidism. Unclear if this is amiodarone-induced. Ultrasound was really nonspecific. He cannot get an RAIU because of a recent CT scan. I have discussed the case with Dr. Vogel who is an system support developer in [place]. She recommended starting methimazole and getting a thyroid scan with Dopplers to distinguish if there is flow or not to the thyroid. It still could be Graves. It still could be thyroiditis, not necessarily associated with amiodarone. Just encourage we repeat labs in another week and then follow up with Endocrinology as an outpatient once he has completed rehab. We have also sent thyroid, thyroxine, TPO antibodies and the thyroid stimulating antibodies as well. At this point, I guess I am going to hold steroids and follow. 5. Disposition. Pending his clinical status. We are still waiting for rehab approval. cc: Javad Jacobs MD
[2019-01-16] MEDS: TAPAZOLE PO SCH ×2 (14:24→21:21)
[2019-01-16] MEDS: NORCO-10 PO PRN (19:53)
[2019-01-17] MEDS: OCUFLOX 0.3% OPH SOLUTION LEFT EYE SCH ×3 (02:49→13:38)
[2019-01-17 07:34] LABS: BASO# 0.01 X1000 (0.0-0.2); BASO% 0.1 % (0.0-0.8); EOS# 0.09 X1000 (0.0-0.7); EOS% 0.9 % (0.0-10.0); HEMATOCRIT 36.1 % (42.0-52.0); HEMOGLOBIN 11.8 g/dL (14.0-18.0); IMM GRAN# 0.02 X1000 (0.0-0.04); IMM GRAN% 0.2 % (0.0-0.5); LYMPH# 1.65 X1000 (1.2-3.4); LYMPH% 17.3 % (20.5-51.1); MCH 28.8 PG (27-31); MCHC 32.7 g/dL (33-37); MONO# 0.81 X1000 (0.11-0.59); MONO% 8.5 % (1.7-9.3); MPV 11.3 FL (7.4-10.4); NEUT# 6.95 X1000 (1.4-6.5); PLT 215 X1000 (130-400); RDW 13.4 % (11.5-14.5); WBC 9.53 X1000 (4.8-10.8)
[2019-01-17 07:50] LABS: AGAP 9; BUN 33 mg/dL (8-22); CALCIUM 10.1 mg/dL (8.8-10.2); CHLORIDE 102 mmol/L (98-107); COSMO 274; CREATININE 1.2 mg/dL (0.7-1.2); ESTIMATED GFR > 60; GLUCOSE 112 mg/dL (70-104); MAGNESIUM 1.8 mg/dL (1.5-2.7); POTASSIUM 4.1 mmol/L (3.5-5.1); SODIUM 133 mmol/L (136-145); TCO2 22 mmol/L (25-35)
[2019-01-17] MEDS: TAPAZOLE PO SCH (08:31)
[2019-01-17] MEDS: ELIQUIS PO SCH (08:31)
[2019-01-17] MEDS: VASOTEC PO SCH (08:31)
[2019-01-17] MEDS: TOPROL XL PO SCH (08:31)
[2019-01-17] MEDS: ASPIRIN EC PO SCH (08:31)
[2019-01-17] MEDS: PRILOSEC PO SCH (08:31)
[2019-01-17] MEDS: WELCHOL PO SCH (08:31)
[2019-01-17] MEDS: NON-FORMULARY BULK MED BOTH EYES SCH (08:35)
[2019-01-17] MEDS ORDERED: CORDARONE 360 MG/D5W 360 MG/200 ML IV.SOLN IV ONE (09:50)
[2019-01-17] MEDS ORDERED: MAGNESIUM SULFATE 2 GM/S.W.I. 2 GM/50 ML IVPB IV ONE ×2 (11:03→12:16)
--- NOTE | 2019-01-17 12:41 | CARDIOLOGY PROGRESS NOTE ---
DATE: 01/17/2019 SUBJECTIVE: Mr. Avila is not complaining of any chest pain. He had some episodes of palpitations occurring around 8:30 or 9 this morning. He said they lasted for a few minutes that occurred while he was lying in bed. It seems these correspond to some episodes of what looks like ventricular tachycardia. OBJECTIVE: VITAL SIGNS: He is afebrile. Heart rate is 79, blood pressure 115/67. General: He is in no acute distress. Cardiovascular: He sounds to be in a regular rate and rhythm. Current monitor shows sinus rhythm. He has no lower extremity edema. He has no murmurs. Chest: Exam sounds clear bilaterally. He has no increased work of breathing. Abdomen: His abdomen is soft and nontender. PERTINENT DATA: His white count is 9.5, hematocrit 36, platelet count is 215,000. His sodium is 133, potassium 4.1, BUN is 33, creatinine is 1.2. His troponin initially was negative. Notably, he had evidence for hyperthyroidism earlier in this hospitalization. ASSESSMENT: Mr. Avila is a 73-year-old gentleman with an ischemic cardiomyopathy. His most recent ejection fraction on 01/12/2019 was 30% to 35%. PLAN: He is known to have essentially occluded [place] vessels. All grafts were occluded with the exception of his GLASS. Notably, his EKG does have some ST depression occurring in the anterior septal leads, as well as progressing somewhat into V4 and V5. This appears to be unchanged compared to his EKG on 01/12/2019. I have placed a call in to the [facility] to consider transfer. The patient has somewhat complex endocrine issues as well as cardiology/electrophysiology issues that need to be addressed. I have replaced him on an amiodarone infusion to stabilize the patient. His magnesium level is 1.8. We will try to replete it above 2. He continues on a beta braydon. He is on aspirin as well. Notably per previous notes, it sounds like he has had a VT ablation in the past. cc: Partha Mallory MD
[2019-01-17] MEDS ORDERED: CORDARONE 540 MG in D5W 289.2 ML IV ONE (15:50)
[2019-01-17 16:47] VITALS: BP 111/75
--- NOTE | 2019-01-17 17:45 | EKG Report ---
Test Performed on : 01/17/2019 09:05:50 AM Test Reason : Confirm VTACH Blood Pressure : / mmHG Vent. Rate : 080 BPM Atrial Rate : 080 BPM P-R Int : 160 ms QRS Dur : 114 ms QT Int : 422 ms P-R-T Axes : 048 045 198 degrees QTc Int : 486 ms Normal sinus rhythm. Inferior-posterior infarct , possibly acute ST & T wave abnormality, consider lateral ischemia ACUTE PA / STEMI Consider right ventricular involvement in acute inferior infarct Abnormal ECG When compared with ECG of 12-JAN-2019 06:58, ST now depressed in Anterior leads Inverted T waves have replaced nonspecific T wave abnormality in Inferior leads T wave inversion now evident in Anterior leads Confirmed by Freeman BOOKER, Walter Lucero ([id number]) on 01/20/2019 8:06:02 AM
--- NOTE | 2019-01-18 08:42 | EKG Report ---
Test Performed on : 01/17/2019 12:57:15 PM Test Reason : cp Blood Pressure : / mmHG Vent. Rate : 070 BPM Atrial Rate : 070 BPM P-R Int : 154 ms QRS Dur : 114 ms QT Int : 452 ms P-R-T Axes : 005 046 161 degrees QTc Int : 488 ms Sinus rhythm. with occasional premature ventricular complexes. Inferior infarct (cited on or before 11-APR-2016) ST & T wave abnormality, consider anterolateral ischemia Abnormal ECG When compared with ECG of 17-JAN-2019 09:05, (Unconfirmed) premature ventricular complexes. are now present ST no longer depressed in Anterior leads T wave inversion less evident in Anterior leads Confirmed by Shawn Barrios MD ([id number]) on 01/21/2019 3:15:21 PM
--- NOTE | 2019-02-09 10:01 | DISCHARGE SUMMARY ---
ADMISSION DATE: 01/12/2019 DISCHARGE DATE: 01/17/2019 DISCHARGE DIAGNOSES: 1. Intermittent encephalopathy. 2. Recurrent ventricular tachycardia. 3. High-grade left carotid stenosis. 4. Hyperthyroidism. PROCEDURES: None. CONSULTATIONS: Cardiology; Dr. Solis, general surgery; vascular surgery; Dr. Hinton, neurology. HOSPITAL COURSE: This is a 74-year-old male presenting with intermittent ventricular tachycardia. He has had issues with this previously. He actually had a LifeVest and he was placed on amiodarone. What I found out later during the transfer to [facility] is that he had known hyperthyroidism. It is not clear that he was getting any treatment for that as far as medications. He was on Toprol but he was not on any other medications and he was on amiodarone. He was somewhat confused. There was concern over stroke. He was hypertensive. However, his scans were negative including head CT and a brain MRI on the . Carotid though showed critical stenosis of the left internal which is hemodynamically significant at 80-99%, right was less than 39%. Limited echocardiogram showed an EF of 30-35% with inferior apical and anterior septal hypokinesis. Cardiology was consulted because of ventricular tachycardia. He had not actually had any events based on the interrogation of the LifeVest device and since it was possible syncope, seizure, recommended neurology, which we did. His thyroid function was abnormal which included a TSH that was very low and a T4 that was mildly elevated. Neurology was consulted. EEG was performed which did not show any seizure. They also did not feel that this was necessarily related to his carotid stenosis. With his ventricular tachycardia, we had stopped the amiodarone but maintained him on the Toprol. He was on aspirin and Eliquis. We got a surgical consult as well. Encephalogram was negative for epileptiform discharges. There was concern over hyperthyroidism and there was concern over trying to get him to [facility] for an automatic grinder operator, which I did discuss the case with the automatic grinder operator, who is Dr. Vogel I believe, and she recommended antithyroid medications including methimazole. We could not get an RAIU because he had a CT scan with contrast which prevented him from getting treatment. There was concern over parkinsonism as well. In any case, head and neck ultrasound showed he was not cooperative and there was concern over a possible multinodular goiter. Dr. Solis recommended a left carotid endarterectomy when he is stabilized. He developed ventricular tachycardia though on the 1st that was sustained. He has occluded CAD, ST depression. I felt that he probably needed EP evaluation and then pacer placement since he had ventricular tachycardia and he had a low EF, which I guess they initially felt his EF was normal and he would not qualify for a pacemaker, but that was not the case because his EF had dropped. He was placed back on amiodarone and magnesium. He is on a beta braydon. Dr. Mallory attempted to transfer him to [facility] for EP evaluation but because of his medical issues, they preferred transferring him to the hospitalist, which was accomplished. I did discuss with the hospitalist there because he will need VT ablation evaluation, possible pacemaker and he will need an endocrine evaluation. His thyroid stimulant antibody was negative, which is inconsistent with Graves. Thyroxine binding globulin is low, which could be related to a thyroiditis. His thyroglobulin antibody, thyroperoxidase antibody, and TSH receptor antibody were all negative. In any case, we will get him evaluated. Further care will be per [facility] when he was transferred there for further management. A 32 minute discharge. cc: MD Benedicto Perdomo MD
== END 2019-01-17 19:00 | disposition short-term general hospital (02) | DRG 309 ==
LOC: SUPCPDRO → ED 17:52 → SUATTDRO 01-12 01:16 → 2N 01-12 01:16
PROVIDERS: ATTEND Internal Medicine

== ENCOUNTER 2019-02-21 15:48 | Inpatient (IN) ==
--- NOTE | 2019-02-21 16:33 | PROVIDER DOCUMENTATION ---
HPI-General Adult - General Chief Complaint: Edema Stated Complaint: EDEMA Time Seen by Provider: 02/21/19 16:32 Source: patient, family Allergies/Adverse Reactions: Patient Allergies Allergy/AdvReac Type Severity Reaction Status Date / Time No Known Allergies Allergy Verified 02/21/19 16:32 Home Medications: Home Medication List Medication Instructions Recorded Confirmed Last Taken Type Omeprazole 20 mg PO BID 05/21/13 02/21/19 05/02/16 06:00 History Ezetimibe [Zetia] 10 mg PO DAILY #0 tablet 04/16/16 02/21/19 05/02/16 06:00 Rx Isosorbide Mononitrate E.r. [Imdur] 90 mg PO DAILY #60 tab 10/03/18 02/21/19 Unknown Rx Magnesium Oxide [Mag-Ox] 400 mg PO BID tab 10/07/18 02/21/19 Unknown Rx ATORVAstatin [Lipitor] 40 mg PO DAILY 02/21/19 02/21/19 Unknown History Apixaban [Eliquis] 5 mg PO DAILY 02/21/19 02/21/19 Unknown History Carvedilol 6.25 mg PO DAILY 02/21/19 02/21/19 Unknown History Clopidogrel Bisulfate [Clopidogrel] 1 tab PO DAILY 02/21/19 02/21/19 Unknown History Furosemide 20 mg PO BID 02/21/19 02/21/19 Unknown History Metolazone 2.5 mg PO DIRECTED 02/21/19 02/21/19 Unknown History Potassium Chloride 10 meq PO DAILY 02/21/19 02/21/19 Unknown History Sacubitril/Valsartan [Entresto 24 1 ea PO NOW 02/21/19 02/21/19 Unknown History mg-26 mg Tablet] - History of Present Illness -Gen Adult Nature of Presenting Problems: This is a 74yo male who presents with CC of dizziness and shortness of breath with walking. The patient reports that this has been ongoing the last few weeks, but family became concerned this weekend when the patient was not getting out of bed and not eating. The patient reports that he has had edema about the last month, and he has also had cough and congestion. He does report being started on new diuretic medications on friday by his bend up and if symptoms did not improve to come to the ED. Location of Pain/Injury: reports: none Onset/Duration: reports: 2 days ago Context/Activities at Onset: reports: light activity (shortness of breath with walking) Associated Symptoms: reports: cough, dizziness, other (shortness of breath) Review of Systems - Adult - REVIEW OF SYSTEMS - ADULT Constitutional: denies: fever Eyes: reports: no symptoms reported. denies: eye pain Ears, Nose, Mouth & Throat: reports: no symptoms reported, other (coughing flem) Cardiovascular: reports: no symptoms reported. denies: chest pain Respiratory: reports: cough, dyspnea on exertion, shortness of breath Gastrointestinal: reports: no symptoms reported. denies: abdominal pain Genitourinary: reports: no symptoms reported. denies: flank pain Musculoskeletal: reports: no symptoms reported. denies: back pain Integumentary: reports: no symptoms reported Neurological: reports: no symptoms reported. denies: headache/migraines Psychiatric: reports: no symptoms reported Endocrine: reports: no symptoms reported Hematologic/Lymphatic: reports: no symptoms reported, other (no bleeding) Allergic/Immunologic: reports: no symptoms reported Past History - Adult - PAST MEDICAL HISTORY-ADULT Review of Records: reports: Old Records Reviewed Major Childhood Illnesses: reports: denies history Cardiovascular: reports: blood clots (PE), CHF, HTN, hyperlipidemia, other (Cardiac disease; ) Gastrointestinal: reports: GERD Genitourinary: reports: denies history Musculoskeletal: reports: denies history - PRIOR SURGERIES/PROCEDURES Surgical/Procedure History: reports: CABG, hernia repair, other (hernia repair) - IMMUNIZATION STATUS Childhood Immunizations: See Nurse Assessment Flu Vaccine: See Nurse Assessment - FAMILY HISTORY Family History: reviewed, not pertinent Physical Exam-General - PHYSICAL EXAM-ADULT Initial Vital Signs Reviewed: Yes - CONSTITUTIONAL General Appearance: appears well, alert, no apparent distress - EYES Eyes: negative: conjuctival exudate - HEAD, EARS, NOSE, MOUTH & THROAT HENMT: normocephalic/atraumatic, moist mucous membranes - RESPIRATORY Respiratory: decreased breath sounds, crackles (RLQ) - CARDIOVASCULAR Cardiovascular: regular rate, rhythm, JVD, other (2+ LE edema bilaterally) - GASTROINTESTINAL (ABDOMEN) Abdominal Exam: non tender, soft - SKIN Integumentary: normal color - NEUROLOGIC Neurologic: grossly normal - PSYCHIATRIC Psych/Mental Status: normal mood/affect, normal thought content, normal thought process Progress - PLAN OF CARE/RESULTS Progress/Plan/Lab Results: Vital Signs - 8 hr 02/21/19 16:14 Temperature 97.9 F Pulse Rate 71 Respiratory Rate 20 Blood Pressure 134/76 O2 Sat by Pulse Oximetry 92 L Laboratory Results - last 24 hr 02/21/19 16:15 POC Glucose 158 H D Orders Category Date Time Status cxr [CHEST-2 VIEWS] [RAD] Stat Exams 02/21/19 16:32 Ordered CBC WITH DIFF [HEME] Stat Lab 02/21/19 16:32 Uncollected COMPREHENSIVE METABOLIC PANEL [CHEM] Stat Lab 02/21/19 16:32 Uncollected PRO B-NATRIURETIC PEPTIDE Stat Lab 02/21/19 16:32 Uncollected TROPONIN T Stat Lab 02/21/19 16:33 Uncollected EKG [EKG] Stat Ther 02/21/19 16:33 Ordered Result Diagrams: 02/21/19 16:55 02/21/19 16:55 - REASSESSMENT Reassessment #1 Status: other (Discussed case with hospitalist team who have agreed to admit the patient.) Departure - Departure Date of Disposition Decision: 02/21/19 Time of Disposition Decision: 19:47 DIAGNOSIS: Hypomagnesemia CHF exacerbation Qualifiers: Heart failure type: systolic Qualified Code(s): I50.23 - Acute on chronic systolic (congestive) heart failure Disposition: ADMITTED INPATIENT 09 Certified Medical Emergency: Emergent Condition: Fair Referrals and Follow-Ups: Leonel Card MD [Primary Care Provider] - - Critical Care Note This patient required my direct & personal management of CC.: No Attestation - Physician/ SHAISTA Attestation Patient care was provided by Advanced Practice Provider:: No The physician spent face to face time with patient:: Yes Advanced Practice Provider documentation review:: Supervising physician onsite and consulted in the evaluation and care of this patient. The physician did have a face to face encounter with the patient.
[2019-02-21 17:20] LABS: BASO# 0.01 X1000 (0.0-0.2); BASO% 0.2 % (0.0-0.8); EOS% 2.2 % (0.0-10.0); HEMATOCRIT 35.5 % (42.0-52.0); HEMOGLOBIN 11.4 g/dL (14.0-18.0); LYMPH# 1.36 X1000 (1.2-3.4); LYMPH% 30.1 % (20.5-51.1); MCH 28.9 PG (27-31); MCHC 32.1 g/dL (33-37); MCV 89.9 FL (81-99); MONO% 22.1 % (1.7-9.3); MPV 11.1 FL (7.4-10.4); NEUT# 2.05 X1000 (1.4-6.5); NEUT% 45.4 % (42.2-75.2); PLT 203 X1000 (130-400); RBC 3.95 XMIL (4.7-6.1); RDW 16.1 % (11.5-14.5); WBC 4.52 X1000 (4.8-10.8)
--- NOTE | 2019-02-21 17:35 | Diag Imaging Result Doc PS360 ---
CHEST-2 VIEWS - 02/21/2019 INDICATION: Edema COMPARISON: 01/16/2019 FINDINGS: There is a new left-sided dual-chamber pacemaker in good position. Stable CABG changes. Stable mild cardiomegaly. Pulmonary vascularity is normal. No infiltrates or edema. Mild compression deformities in two lower thoracic spine vertebral bodies are age-indeterminate. IMPRESSION: Cardiomegaly. Electronically signed by Srinivas Mayer 02/21/2019 5:33 PM
[2019-02-21 17:37] LABS: ALB/GLOB RATIO 1.3; ALBUMIN 3.6 g/dL (3.5-5.0); CALCIUM 9.5 mg/dL (8.8-10.2); POTASSIUM 3.3 mmol/L (3.5-5.1); TOTAL BILIRUBIN 0.47 mg/dL (0.20-1.00); TOTAL PROTEIN 6.3 g/dL (6.3-8.3)
[2019-02-21 17:38] LABS: EOS 3 % (1-10); LARGE PLATELETS OCCASIONAL; LYMPHS 35 % (21-51); MONO 14 % (1-9); SEGS 48 % (42-75)
[2019-02-21 17:39] LABS: ANISOCYTOSIS 1+; POIKILOCYTOSIS 2+
[2019-02-21] MEDS ORDERED: MAGNESIUM SULFATE 4 GM/S.W.I. 4 GM/100 ML IVPB IV ONE (18:30)
[2019-02-21] MEDS ORDERED: KLOR-CON POWDER PACKET PO ONE (18:54)
[2019-02-21 20:19] LABS: INR 1.44; PROTIME 17.8 Seconds (11.0-16.0)
--- NOTE | 2019-02-21 21:56 | HISTORY AND PHYSICAL ---
ADDENDUM: Patient seen and examined by me [id number]. All the laboratory, vital signs and images were reviewed. The patient presented to the emergency department complaining of some dizziness and fatigue, some shortness of breath with walking and apparently this has been going on for a few weeks, decreased appetite. Apparently he was on Lasix before but then it was changed to torsemide and metolazone, he has an acute on chronic kidney disease. He has bilateral lower extremity edema. His lungs are clear, at this moment he is resting comfortably in bed without shortness of breath. Chest x-ray showed cardiomegaly and there is a new left-sided dual-chamber pacemaker which is in good position. Apparently the edema at the level of the lower extremity is better, laboratory showed hypokalemia, hypomagnesemia and elevated pro BNP, since he is having acute kidney injury on chronic kidney disease I will hold diuretics today and I will ask Cardiology Department to evaluate this patient in the morning. We will replace the potassium and magnesium level and will recheck it in the morning again. We will probably need to consult Nephrology Department if his kidney function gets worse. I agree with the rest of the nurse practitioner's assessment and plan. cc: Kelby Pettit MD
[2019-02-21] MEDS: COREG PO SCH (23:36)
[2019-02-21] MEDS: ELIQUIS PO SCH (23:37)
[2019-02-21] MEDS: PRILOSEC PO SCH (23:37)
[2019-02-21] MEDS: BETAPACE PO SCH (23:37)
--- NOTE | 2019-02-22 00:07 | EKG Report ---
Test Performed on : 02/21/2019 8:22:53 PM Test Reason : Edema Blood Pressure : / mmHG Vent. Rate : 080 BPM Atrial Rate : 080 BPM P-R Int : 156 ms QRS Dur : 118 ms QT Int : 470 ms P-R-T Axes : 064 037 172 degrees QTc Int : 542 ms Sinus rhythm. with fusion complexes and premature atrial complexes. Possible Inferior infarct (cited on or before 11-APR-2016) ST & T wave abnormality, consider anterolateral ischemia Prolonged QT Abnormal ECG When compared with ECG of 17-JAN-2019 12:57, Significant changes have occurred Unconfirmed Result
--- NOTE | 2019-02-22 03:41 | HISTORY AND PHYSICAL ---
DATE AND TIME: 02/21/2019 at 2015. CHIEF COMPLAINT: Dizziness, weakness, exertional dyspnea and edema. HISTORY OF PRESENT ILLNESS: Mr. Avila is a 74-year-old male who has a past medical history that is most notable for history of coronary artery disease status post coronary artery bypass graft in 2016. He also has a history of cardiac stent placement. He does have a history of chronic systolic congestive heart failure and a recent history of problems with ventricular tachycardia. The patient has just recently been discharged from [facility] after having a pacemaker defibrillator placed. His daughter states that he has been at home and was doing good, was up walking around, eating well, was working with physical therapy though he did begin to have some increased swelling in his bilateral lower extremities. He was also having some exertional dyspnea and a cough. They did see Dr. Card, who did make some adjustments to his diuretics. He stopped his furosemide altogether and placed him on metolazone 2.5 mg Mondays, Wednesdays, and Fridays as well as torsemide 20 mg p.o. b.i.d. This was on February 18. His niece at bedside states that since that time he has had a steady decline. She noticed that he has been more weak. The patient reported feeling dizzy. She states that he has been lying in bed not wanting to get up. He has had decreased appetite as well. She also reports that after they arrived to the ER today when he was sitting in the lobby that he did have loss of bladder and did almost have a near syncopal episode. She also reports that he has been having urinary frequency though the patient himself denies any headache. He is reporting dizziness. He denies any chest pain. He reports shortness of breath with exertion though at rest he denies any shortness of breath. He has reported a cough that is occasionally productive of clear sputum. He is reporting a sore throat though has had some sinus drainage. He has denied any fever, body aches, or chills. He denies any abdominal pain, nausea, vomiting, or diarrhea. He states his last bowel movement was yesterday. He denies any hematochezia or melena. Other than his increased urine output, he denies any dysuria. He is reporting some swelling in his bilateral lower extremities which his niece states has improved since Friday when he saw Dr. Card though he still does have 2 to 3+ pitting edema. Upon evaluation in the ER, the patient was noted to have electrolyte abnormalities of hypokalemia at 3.3 and hypomagnesemia at 0.6. He also does have an acute kidney injury with a creatinine of 2 and a GFR of 40. CK enzymes have been within normal limits though his troponins are slightly elevated at 0.05 though the patient is as previously mentioned denying any chest pain. He did have an EKG that showed sinus rhythm with fusion complexes and premature atrial complexes and a prolonged QT with a QTc of 542. The patient did receive oral potassium and has been given 4 mg of magnesium sulfate IV. He will be placed inpatient for admission. REVIEW OF SYSTEMS: A 14 point review of systems was conducted with the patient and all were negative except for pertinent positives mentioned in above HPI. PAST MEDICAL HISTORY: 1. History of ventricular tachycardia. 2. History of coronary artery disease status post coronary artery bypass graft and stent placement. His CABG was in 2015. 3. Hypertension. 4. History of pulmonary embolism in 2013, on Eliquis for anticoagulation. 5. GERD. 6. Chronic systolic congestive heart failure. 7. Hyperlipidemia. 8. Nicotine dependence. 9. Chronic back pain. PAST SURGICAL HISTORY: 1. Coronary artery bypass graft. 2. Ventral hernia repair. 3. Hemorrhoidectomy. 4. Bilateral cataract surgery. 5. Status post recent pacemaker defibrillator. FAMILY HISTORY: Positive for diabetes mellitus. SOCIAL HISTORY: The patient previously did live by himself upon his last admission. He does have a niece who helps care for him. She was at bedside during my examination. The patient upon his last admission was still smoking though he only smokes approximately a few cigarettes a day. There is no known alcohol or illicit drug use. ALLERGIES: The patient has no known allergies. HOME MEDICATIONS: 1. Eliquis 5 mg p.o. b.i.d. 2. Lipitor 40 mg p.o. at bedtime. 3. Coreg 6.25 mg p.o. b.i.d. 4. Plavix 75 mg p.o. daily. 5. Zetia 10 mg p.o. daily. 6. Imdur 90 mg p.o. daily. 7. Magnesium oxide 400 mg p.o. daily. 8. Metolazone 2.5 mg p.o. on Mondays, Wednesdays, and Fridays. 9. Nitroglycerin 0.4 mg sublingual as directed p.r.n. for chest pain. 10. Omeprazole 20 mg p.o. b.i.d. 11. Potassium chloride 10 mEq p.o. daily. 12. Entresto. At this time I am not certain what dose of this he takes or how many times a day he takes it. This medication was listed on the patient's list though it was just a name only. This does need to be confirmed. 13. Sotalol 80 mg p.o. b.i.d. 14. Torsemide 20 mg p.o. b.i.d. DIAGNOSTIC DATA: White blood cell count is 4520, hemoglobin 11.4, hematocrit 35.5, platelet count is 203,000. PT 17.8, INR 1.44, PTT is 30. Sodium 143, potassium 3.3, chloride 100, serum bicarbonate is 32, BUN 27, creatinine 2 with a GFR at 40, glucose 140, calcium 9.5, magnesium is 0.6. Liver function tests are within normal limits. CK 82, troponin 0.05. ProBNP is 4813. EKG showed sinus rhythm with fusion complexes, and premature atrial complexes and a prolonged QT at a rate of 80 with a QTc of 542. Chest x-ray showed cardiomegaly though the pulmonary vascularity was normal. There were no infiltrates or edema noted. PHYSICAL EXAMINATION: VITAL SIGNS: Temperature 97.9 degrees, heart rate 94, respirations 18, blood pressure is 110/75, oxygen saturation is 98% on room air. GENERAL: Mr. Avila is a very pleasant 74-year-old male. He was resting in the ER stretcher. He was in no acute distress. He is alert and oriented to person, place, time, and situation. HEENT: Head is atraumatic, normocephalic. Pupils are equal, round, reactive to light, were 3 mm bilaterally and brisk. Oral mucosa is moist. Oropharynx is clear. NECK: Supple. Trachea midline. There is maybe some slight JVD noted. CARDIOVASCULAR: Patient has S1-S2 present. No murmurs, gallops, rubs appreciated with a regular rate and rhythm. PULMONARY: Patient has symmetrical chest expansion bilaterally. Lung sounds clear to auscultation in bilateral full vaz. ABDOMEN: Soft, nondistended, nontender. Bowel sounds are present in all 4 quadrants, were normoactive. EXTREMITIES: No cyanosis noted. The patient does have 2 to 3+ pitting edema noted in bilateral lower extremities from about mid calf down though pulse, motor and sensory are intact. Radial pulses are 2+ bilaterally. Though patient's pedal pulses were difficult to palpate due to swelling, they were easily obtainable with venous Doppler. INTEGUMENTARY: The patient's skin color is normal for his race, is dry and intact. NEUROLOGICAL: Patient is alert and oriented to person, place, time, and situation. He does have equal muscle strength in hand grasps bilaterally. There do not appear to be any focal neurological deficits noted at this time. ASSESSMENT AND PLAN: 1. Congestive heart failure. The patient from his reports did sound like he may have been having some worsening symptoms. At the end of last week, he was reporting some increased bilateral lower extremity swelling as well as some exertional dyspnea and a cough. Though his Lasix was held, they did place him on the medications of metolazone and torsemide. Since that time, his daughter reports that his swelling has improved though other than that his condition did decline. He reported increased weakness, not wanting to get out of bed, and decreased appetite as well as dizziness. The patient did have electrolyte abnormalities of hypokalemia and hypomagnesemia. He also does have an acute kidney injury with a creatinine of 2 at this time. The patient is resting in bed without oxygen, is not reporting any chest pain or shortness of breath at this time. He is not tachypneic. He is maintaining 98% oxygen saturation on room air. His chest x-ray did not show any edema. Lung sounds were clear. Given his acute kidney injury and recent electrolyte abnormalities, we will hold any diuretics just for tonight. We will await Cardiology's evaluation in the morning and let them evaluate the patient and make further decisions for diuretic therapy. We have placed a consult with Dr. Nolan. We will await their evaluation and further recommendations for management. The patient's most recent echocardiogram was in December of 2018 which showed an ejection fraction of 30 to 35 percent. 2. Hypomagnesemia. The patient's magnesium level was 0.6. He did receive 4 g of magnesium sulfate IV. We will recheck his electrolytes in the morning. 3. Hypokalemia. This has been replaced with oral potassium. We will recheck this in the morning as well. 4. Acute kidney injury. The patient's creatinine is 2 at this time. We will avoid nephrotoxic medications and renally dose medicines as necessary. We will continue to monitor closely though if the patient's renal function does not improve he may need a nephrology consult. 5. History of ventricular tachycardia status post recent pacemaker defibrillator placement in the left chest. The patient has not had any episodes of this since arriving to the ER. We will continue his medications of Coreg and sotalol. He will be placed on continuous cardiac telemetry. We will monitor closely. 6. History of coronary artery disease status post cardiac stent placement and coronary artery bypass graft. 7. History of pulmonary embolism. We will continue his Eliquis. The patient will placed on PVC unit for close monitoring. We will do vital signs q.4 hours, incentive spirometry. He will be on GI soft diet, heart healthy with low-sodium for CHF patient. We will repeat a CBC, BMP, magnesium and phosphorus as well as a series of cardiac enzymes. Further orders and recommendations pending hospital course, diagnostic studies, and physician evaluation. Dictated by HOLLY Gutierres for Kelby Pettit MD cc: Kelby Pettit MD MTDD
[2019-02-22 06:18] LABS: BASO# 0.02 X1000 (0.0-0.2); BASO% 0.4 % (0.0-0.8); EOS# 0.08 X1000 (0.0-0.7); EOS% 1.7 % (0.0-10.0); HEMATOCRIT 36.9 % (42.0-52.0); HEMOGLOBIN 11.6 g/dL (14.0-18.0); LYMPH# 1.43 X1000 (1.2-3.4); LYMPH% 30.8 % (20.5-51.1); MCH 28.9 PG (27-31); MCHC 31.4 g/dL (33-37); MONO# 0.84 X1000 (0.11-0.59); MONO% 18.1 % (1.7-9.3); NEUT# 2.27 X1000 (1.4-6.5); PLT 204 X1000 (130-400); RBC 4.01 XMIL (4.7-6.1); RDW 16.4 % (11.5-14.5); WBC 4.64 X1000 (4.8-10.8)
[2019-02-22 06:28] LABS: INR 1.43; PROTIME 17.7 Seconds (11.0-16.0)
[2019-02-22 06:35] LABS: CALCIUM 9.8 mg/dL (8.8-10.2); CREATININE 1.9 mg/dL (0.7-1.2); MAGNESIUM 1.5 mg/dL (1.5-2.7); PHOSPHORUS 3.1 mg/dL (2.7-4.5); POTASSIUM 3.2 mmol/L (3.5-5.1)
[2019-02-22] MEDS: IMDUR PO SCH (08:54)
[2019-02-22] MEDS: PLAVIX PO SCH (08:54)
[2019-02-22] MEDS: BETAPACE PO SCH ×2 (08:54→20:38)
[2019-02-22] MEDS: ZETIA PO SCH (08:54)
[2019-02-22] MEDS: PRILOSEC PO SCH ×2 (08:54→20:38)
[2019-02-22] MEDS: COREG PO SCH ×2 (08:54→20:38)
[2019-02-22] MEDS: ELIQUIS PO SCH ×2 (08:54→20:38)
[2019-02-22] MEDS ORDERED: MAG-OX PO SCH (09:00)
[2019-02-22] MEDS ORDERED: PLAVIX PO SCH (09:00)
[2019-02-22] MEDS ORDERED: KLOR-CON PO ONE (10:03)
[2019-02-22] MEDS ORDERED: MAGNESIUM SULFATE 2 GM/S.W.I. 2 GM/50 ML IVPB IV ONE (10:13)
[2019-02-22] MEDS ORDERED: 1/2 NS 500 ML IV SCH (10:15)
--- NOTE | 2019-02-22 10:53 | CARDIOLOGY CONSULTATION ---
DATE: 02/22/2019 HISTORY OF PRESENT ILLNESS: Mr. Avila is a 74-year-old, gentleman with a history of coronary artery disease, coronary artery bypass grafting, stent placement, severe LV dysfunction, ventricular tachycardia, status post VT ablation. I had seen him in the office last week where he had increasing bilateral 3+ pitting edema to his shins. I had changed him from Lasix to torsemide 20 b.i.d., and added metolazone to his medical regimen. He came to the hospital feeling weak and dizzy, and was admitted. He was noted to be dehydrated, having severe electrolyte imbalance with a potassium of 3.2 and a magnesium of 0.6. Chest x-ray revealed cardiomegaly. There was no overt congestive heart failure. However, his pedal edema had improved. Today, he does not complain of chest pain. His shortness of breath is stable. He says his pedal edema is better but he feels weak. There is no history of palpitations or syncope. REVIEW OF SYSTEMS: A 14-point review of systems was done. GI System: There is no history of nausea, vomiting, diarrhea. There is no history of hematemesis or melena. Central Nervous System: No focal weakness to suggest a CVA or TIA. Genitourinary System: There is no dysuria or hematuria. PAST MEDICAL HISTORY: 1. Systolic heart failure. 2. Ventricular tachycardia, status post ablation of the ventricular tachycardia on 10/08/2018. He was, in the past, on amiodarone. This was changed subsequently to sotalol. He has a severe LV dysfunction, ejection fraction of 30-35%. 3. Coronary artery disease, status post coronary artery bypass grafting with GLASS to left anterior descending artery, SVG to RCA, SVG to OM, SVG to diagonal on 01/03/1995. The patient had a cardiac catheterization on 10/07/2018. Left main fully calcified, ostial 40-50% stenosis, distal 80-90% stenosis. LAD occluded after the diagonal branch. Circumflex proximal 100%. RCA known occluded. GLASS to left anterior descending artery patent. The patient had a high risk PCI of the distal left main with a bare metal stent and this was to proximal D1 with a drug-eluting stent. SVG to RCA 100% occluded. SVG to OM 100% occluded. 4. Status post AICD placement, [employer] device. 5. Bilateral minimal carotid disease. 6. Hyperlipidemia. 7. Hypothyroidism. 8. The patient had a past medical history of pulmonary embolism in the past. HOME MEDICATIONS: Omeprazole 20 b.i.d., Zetia 10 mg a day, isosorbide mononitrate 30, atorvastatin 40, Coreg 6.25 b.i.d., sotalol 80 mg b.i.d. torsemide 20 b.i.d., Plavix 75 daily, Eliquis 5 mg p.o. b.i.d., metolazone 2.5 mg as directed, magnesium oxide as an outpatient. PHYSICAL EXAMINATION: Blood pressure was 129/84. Cardiovascular System: Jugular venous pressure. Normal first and second heart sounds were heard. There was a soft murmur. Decreased breath sound at the bases. Abdomen was soft, nontender. There was no guarding or rigidity. Bowel sounds were heard. Central Nervous System: Alert and was moving all 4 extremities. Examination of his extremities, left ankle pitting edema, right ankle mild edema. ASSESSMENT AND PLAN: Mr. Lavon Avila is a 74-year-old, gentleman with a history of coronary artery disease, coronary artery bypass grafting in 1994. Recent intervention in September 2018, had recurrent ventricular tachycardia. Underwent ablation of the ventricular tachycardia in September. Systolic heart failure was recently seen in the office. Had increasing pitting pedal edema. I had changed his diuretics as above. He is admitted with weakness and symptomatically, however, he has improved as far as his heart failure and pedal edema are concerned. RECOMMENDATIONS: 1. I suspect the diuresis had improved his edema but has worsened his renal function. We will discontinue the metolazone as planned. I will restart him back on torsemide 20 mg during this hospitalization and adjust it accordingly. In the interim, his creatinine has worsened to 1.7. We will give him gentle hydration. 2. He has had pulmonary embolism in the past and has been on Eliquis. We will continue that. 3. Ventricular tachycardia. He is on sotalol 80 mg twice daily. I have not made any changes. 4. As far as medications for systolic heart failure is concerned, he is on a combination of Entresto and beta-blockers. I have not made any changes. 5. We will check a BMP in the morning and magnesium levels were 0.6. He was repleted with 4 g of magnesium. His magnesium today was 1.5. We will replete with 2 g of magnesium intravenously. Thank you for the consult. cc: Leonel Card MD
[2019-02-22 17:14] LABS: UR CREAT RANDOM 139.1 mg/dL (14-26)
--- NOTE | 2019-02-22 19:38 | PROGRESS NOTE ---
DATE: 02/22/2019 SUBJECTIVE: This morning Mr. Avila refers to be feeling a little better. He thinks the swelling in the lower extremities is getting better. His repeat creatinine this morning is 1.9. OBJECTIVE: Mr. Avila is a 74 years male. He is in bed in no distress.HEENT: Mucosa is pink and moist. Anicteric. Acyanotic. Neck: Supple. I think there is a mild JVD. Chest: Air entry was bilaterally reduced. There is crackles in the posterior lung vaz. Cardiovascular: Regular rate and rhythm. There is a pacemaker up and defibrillator pocket on the left anterior chest wall. There is an old sternotomy scars on anterior chest wall cardiovascular regular rate and rhythm. Abdomen: Soft, nontender. Extremities: About 2+ pedal edema. [employer]: Patient is awake, alert, and oriented. LABORATORY DATA: CBC shows normocytic anemia. Chemistry is also consistent with mild hypernatremia and hypokalemia. Creatinine is 1.9. The patient's Pro-B is 4813. ASSESSMENT: 1. Mild fluid overload, most likely due to congestive heart failure with systolic dysfunction. 2. Severe dilated ischemic cardiomyopathy with ejection fraction of 30% to 35% on recent echocardiogram. 3. Acute kidney injury presumably due to diuretic side effects. Metolazone has been discontinued. Patient has been switched to p.o. torsemide. 4. History of ventricular tachycardia, status post pacemaker and defibrillator. 5. History of coronary artery disease status post stents and coronary artery bypass grafting. The patient is currently asymptomatic. 6. History of pulmonary embolism. Patient is on Eliquis. 7. Generalized weakness and fatigue, most likely related to metabolic derangements from excessive diuretic side effects. cc: Dirk Sahu MD
[2019-02-22] MEDS: LIPITOR PO SCH (20:38)
[2019-02-23 05:59] LABS: CALCIUM 9.2 mg/dL (8.8-10.2); CREATININE 1.5 mg/dL (0.7-1.2); MAGNESIUM 1.4 mg/dL (1.5-2.7); POTASSIUM 3.5 mmol/L (3.5-5.1)
[2019-02-23] MEDS: COREG PO SCH ×3 (07:55→20:28)
[2019-02-23] MEDS: ELIQUIS PO SCH ×3 (07:55→20:28)
[2019-02-23] MEDS: PRILOSEC PO SCH ×3 (07:55→20:28)
[2019-02-23] MEDS: PLAVIX PO SCH ×2 (07:56→08:03)
[2019-02-23] MEDS: IMDUR PO SCH ×2 (07:56→08:02)
[2019-02-23] MEDS: ZETIA PO SCH ×2 (07:56→08:03)
[2019-02-23] MEDS: ENTRESTO 24 MG-26 MG TABLET PO SCH ×3 (07:56→20:28)
[2019-02-23] MEDS: DEMADEX PO SCH ×2 (07:56→08:02)
[2019-02-23] MEDS: BETAPACE PO SCH ×3 (07:57→20:28)
[2019-02-23] MEDS: MAG-OX PO SCH ×2 (07:57→08:02)
[2019-02-23] MEDS ORDERED: MAGNESIUM SULFATE 2 GM/S.W.I. 2 GM/50 ML IVPB IV ONE (09:03)
--- NOTE | 2019-02-23 10:44 | PROGRESS NOTE ---
DATE: 02/23/2019 SUBJECTIVE: This patient states that he is feeling better. His lower extremity swelling is getting better also. Repeated his creatinine this morning and is down to 1.5 from 1.9; probably this is close to his baseline. I will continue following the recommendations of Cardiology Department. OBJECTIVE: Vital Signs: Temperature 98 degrees, pulse 72, respiratory rate 18, blood pressure 162/78, oxygen saturation 96 on room air. HEENT: Head normocephalic, no trauma. PERRLA. Neck: Supple. No JVD. No masses. Central trachea. Chest: There is a pacemaker/defibrillator pocket on the left anterior chest wall. There is an old sternotomy scar of anterior chest. He does have some crepitus and crackles in the posterior lung vaz. Cardiovascular: As above. Regular rate and rhythm. Abdomen: Soft, nontender, nondistended. No hepatosplenomegaly. Extremities: 2+ lower extremity edema. No clubbing. No cyanosis. Neurological examination: The patient is alert. He is oriented x3. No focal deficits. LABORATORY: Sodium 141, potassium 3.5, chloride 101, bicarbonate 25. BUN 32, creatinine 1.5, glucose 94, calcium 9.2, magnesium 1.4. ASSESSMENT AND PLAN: 1. Severe dilated ischemic cardiomyopathy with an ejection fraction of 30 to 35 percent on recent echocardiogram. We will continue following the recommendations of Cardiology Department. He came in with fluid overload, which I do believe is getting better. 2. Acute on chronic kidney disease. This is getting better. Continue with same management. 3. Fluid overload, likely due to heart failure with systolic dysfunction. This is getting better. 4. History of ventricular tachycardia, status post pacemaker and defibrillator. Aware. 5. History of coronary artery disease, status post stents and coronary artery bypass graft, currently asymptomatic. 6. History of pulmonary embolism. Continue with Eliquis. 7. Generalized weakness and physical deconditioning. I have requested physical therapy and occupational therapy to evaluate this patient. As per the patient, he is able to walk at home. 8. Hypomagnesemia. I will replace the magnesium again. cc: Kelby Pettit MD
[2019-02-23] MEDS: TYLENOL PO PRN (20:28)
[2019-02-23] MEDS: LIPITOR PO SCH (20:28)
[2019-02-24 06:01] LABS: CREATININE 1.7 mg/dL (0.7-1.2); MAGNESIUM 1.4 mg/dL (1.5-2.7); POTASSIUM 3.3 mmol/L (3.5-5.1)
--- NOTE | 2019-02-24 06:52 | Diag Imaging Result Doc PS360 ---
CHEST-PORTABLE - 02/24/2019 INDICATION: chf COMPARISON: 02/21/2019 FINDINGS: Stable pacemaker. Stable sternotomy wires. Stable mild cardiomegaly. There is now pulmonary vascular congestion. No infiltrates or edema. No large pleural effusion. IMPRESSION: Cardiomegaly and pulmonary vascular congestion. Electronically signed by Srinivas Mayer 02/24/2019 6:50 AM
[2019-02-24] MEDS ORDERED: MAGNESIUM SULFATE 2 GM/S.W.I. 2 GM/50 ML IVPB IV ONE (08:14)
[2019-02-24] MEDS ORDERED: KLOR-CON PO ONE (08:15)
[2019-02-24] MEDS: IMDUR PO SCH (08:39)
[2019-02-24] MEDS: COREG PO SCH ×2 (08:40→20:23)
[2019-02-24] MEDS: PRILOSEC PO SCH ×2 (08:40→20:23)
[2019-02-24] MEDS: BETAPACE PO SCH ×2 (08:40→20:23)
[2019-02-24] MEDS: MAG-OX PO SCH (08:40)
[2019-02-24] MEDS: PLAVIX PO SCH (08:40)
[2019-02-24] MEDS: DEMADEX PO SCH (08:40)
[2019-02-24] MEDS: ENTRESTO 24 MG-26 MG TABLET PO SCH ×2 (08:40→20:23)
[2019-02-24] MEDS: ZETIA PO SCH (08:40)
--- NOTE | 2019-02-24 08:53 | EKG Report ---
Test Performed on : 02/24/2019 06:26:42 AM Test Reason : afib Blood Pressure : / mmHG Vent. Rate : 065 BPM Atrial Rate : 065 BPM P-R Int : 134 ms QRS Dur : 116 ms QT Int : 538 ms P-R-T Axes : 101 047 157 degrees QTc Int : 559 ms Sinus rhythm. with frequent premature ventricular complexes. in a pattern of bigeminy. Inferior infarct (cited on or before 11-APR-2016) ST & T wave abnormality, consider lateral ischemia Abnormal ECG When compared with ECG of 21-FEB-2019 20:22, (Unconfirmed) fusion complexes are no longer present premature ventricular complexes. are now present premature atrial complexes. are no longer present T wave inversion no longer evident in Anterior leads T wave inversion more evident in Lateral leads Confirmed by Anupam BOOKER, Eliseo Lucero ([id number]) on 02/25/2019 7:41:59 PM
[2019-02-24] MEDS: ELIQUIS PO SCH ×2 (09:10→20:23)
--- NOTE | 2019-02-24 09:22 | PROGRESS NOTE ---
DATE: 02/24/2019 SUBJECTIVE: Per the patient, he is feeling better but he is having generalized weakness. Apparently, he lives by himself. We will continue with diuresis. We have not been able to measure his urine output. He has been refusing a Avalos catheter and he is not urinating in the urinal. I will replace the magnesium and potassium. I already asked for physical therapy and occupational therapy. I do believe this patient can be transferred to the floor. OBJECTIVE: Vital Signs: Temperature 98.2 degrees, pulse 66, respiratory rate 20, blood pressure 113/64, oxygen saturation 99 on room air. HEENT: Head normocephalic. No trauma. PERRLA. Neck: Supple. No JVD. No masses. Central trachea. Chest: There is a pacemaker/defibrillator pocket on the left anterior chest wall. There is an old sternotomy scar on the anterior chest. He does have some crepitus and crackles in the posterior lung vaz. Cardiovascular: As above. RRR. Abdomen: Soft, nontender, nondistended. No hepatosplenomegaly. Extremities: Trace lower extremity edema. No clubbing. No cyanosis. Neurological Examination: This patient is alert. He is oriented x3. He does have generalized weakness. Laboratory: Sodium 141, potassium 3.3, chloride 103, bicarbonate 26, BUN 33, creatinine 1.7, glucose 121, calcium 9, magnesium 1.4. ASSESSMENT AND PLAN: 1. Severe dilated ischemic cardiomyopathy with an ejection fraction of 30 to 35 percent on recent echocardiogram. We will continue following the recommendations of cardiology department. He came in with fluid overload and this is getting better. 2. Acute on chronic kidney disease. This is a little bit better compared with admission. We will continue with the same management. 3. Fluid overload, likely due to heart failure with systolic dysfunction. This is much better. 4. History of ventricular tachycardia, status post pacemaker and defibrillator. Aware. 5. History of coronary artery disease, status post stents and coronary artery bypass graft, currently asymptomatic. 6. History of pulmonary embolism. Continue with Eliquis. 7. Generalized weakness and physical deconditioning. I have requested already physical therapy and occupational therapy to evaluate this patient. As per the patient, he was able to walk at home. 8. Hypokalemia. I will replace the potassium. 9. Hypomagnesemia. I will replace the magnesium. 10. Overall, this patient seems to be better. He does have generalized weakness and that was one of the reasons why this patient came to the hospital. I have requested an evaluation by occupational therapy and physical therapy. We will continue with the same management. Cardiology department following this patient closely as well. cc: Kelby Pettit MD
[2019-02-24] MEDS: TYLENOL PO PRN (15:13)
[2019-02-24] MEDS: LIPITOR PO SCH (20:23)
[2019-02-25 08:31] LABS: BASO# 0.02 X1000 (0.0-0.2); BASO% 0.4 % (0.0-0.8); EOS# 0.11 X1000 (0.0-0.7); EOS% 2.1 % (0.0-10.0); HEMATOCRIT 37.1 % (42.0-52.0); HEMOGLOBIN 11.8 g/dL (14.0-18.0); LYMPH# 1.57 X1000 (1.2-3.4); LYMPH% 29.5 % (20.5-51.1); MCH 28.6 PG (27-31); MCHC 31.8 g/dL (33-37); MONO# 1.12 X1000 (0.11-0.59); MPV 10.9 FL (7.4-10.4); NEUT# 2.51 X1000 (1.4-6.5); PLT 268 X1000 (130-400); RBC 4.12 XMIL (4.7-6.1); RDW 15.6 % (11.5-14.5); WBC 5.33 X1000 (4.8-10.8)
[2019-02-25 08:51] LABS: CALCIUM 9.2 mg/dL (8.8-10.2); CREATININE 1.5 mg/dL (0.7-1.2); MAGNESIUM 1.6 mg/dL (1.5-2.7); PHOSPHORUS 2.6 mg/dL (2.7-4.5); POTASSIUM 3.7 mmol/L (3.5-5.1)
[2019-02-25] MEDS: MAG-OX PO SCH (09:26)
[2019-02-25] MEDS: BETAPACE PO SCH ×2 (09:26→20:58)
[2019-02-25] MEDS: IMDUR PO SCH (09:26)
[2019-02-25] MEDS: PRILOSEC PO SCH ×2 (09:26→20:59)
[2019-02-25] MEDS: PLAVIX PO SCH (09:26)
[2019-02-25] MEDS: ELIQUIS PO SCH ×2 (09:27→20:58)
[2019-02-25] MEDS: DEMADEX PO SCH (09:27)
[2019-02-25] MEDS: ENTRESTO 24 MG-26 MG TABLET PO SCH ×2 (09:27→20:59)
[2019-02-25] MEDS: ZETIA PO SCH (09:27)
[2019-02-25] MEDS: COREG PO SCH ×2 (09:27→20:58)
[2019-02-25 09:48] LABS: LYMPHS 33 % (21-51); MONO 14 % (1-9); SEGS 50 % (42-75)
[2019-02-25 09:49] LABS: ANISOCYTOSIS 1+; POIKILOCYTOSIS 1+
[2019-02-25 09:50] LABS: BURR CELLS 1+; LARGE PLATELETS OCCASIONAL
--- NOTE | 2019-02-25 09:53 | Diag Imaging Result Doc PS360 ---
EXAM: CHEST-PORTABLE HISTORY: dyspnea TECHNIQUE: Chest single view COMPARISON: 02/24/2019 FINDINGS: The lungs are well expanded. The sternal wires and surgical clips as well as a left-sided pacemaker. The heart is mildly prominent. Mild central vascular distention. No consolidation. No pleural effusions identified. IMPRESSION: Stable chest Electronically signed by Quintin Eduardo 02/25/2019 9:50 AM
[2019-02-25] MEDS ORDERED: MAGNESIUM SULFATE 2 GM/S.W.I. 2 GM/50 ML IVPB IV ONE (15:48)
--- NOTE | 2019-02-25 16:12 | PROGRESS NOTE ---
DATE: 02/25/2019 SUBJECTIVE: The patient is sitting up at the edge of the bed. He has no complaints. He denies having any shortness of breath or chest pain. OBJECTIVE: Vital Signs: Temperature 97.6 degrees, blood pressure 103/47, heart rate 67, respirations 14, O2 saturations 100% on room air. General: This is a chronically ill-appearing elderly male sitting at the edge of the bed in no acute distress. Heart: S1, S2 normal. Regular rate and rhythm. Lungs: Clear to auscultation bilaterally. Abdomen: Positive bowel sounds. Soft, nontender, nondistended. Extremities: No edema, no cyanosis. Neurologic: The patient is alert and oriented x3. LABS: White blood cell count 5.3, hemoglobin 11, hematocrit 37, platelets 268. BUN 28, creatinine 1.5, glucose 110. Potassium 3.7, sodium 142, magnesium 1.6. ProBNP 2540. X-RAYS: Chest x-ray shows stable chest, no acute disease. ASSESSMENT AND PLAN: 1. Acute on chronic systolic congestive heart failure exacerbation. Improved. The patient is on room air. His cardiac medications have been adjusted by the worm picker. 2. Acute kidney injury on chronic kidney disease. Improved. Continue to monitor closely. 3. Coronary artery disease status post coronary artery bypass graft and stents. Aware. Continue on the current cardiac medications. 4. History of pulmonary embolism. Continue on Eliquis. 5. Hypomagnesemia. Will replace the patient's magnesium. 6. Disposition: Will plan to discharge the patient home possibly tomorrow. The patient is refusing inpatient rehab. He prefers to go home with home health. Account Review Specialist has already set that up for the patient. cc: Grace Ludwig MD
[2019-02-25] MEDS: LIPITOR PO SCH (20:58)
[2019-02-26 07:29] LABS: HEMATOCRIT 36.7 % (42.0-52.0); HEMOGLOBIN 11.7 g/dL (14.0-18.0); MCH 28.9 PG (27-31); MCHC 31.9 g/dL (33-37); MCV 90.6 FL (81-99); MPV 11.1 FL (7.4-10.4); RBC 4.05 XMIL (4.7-6.1); RDW 15.7 % (11.5-14.5); WBC 6.27 X1000 (4.8-10.8)
[2019-02-26 07:57] LABS: CALCIUM 9.3 mg/dL (8.8-10.2); CREATININE 1.5 mg/dL (0.7-1.2); MAGNESIUM 1.5 mg/dL (1.5-2.7); PHOSPHORUS 2.7 mg/dL (2.7-4.5); POTASSIUM 3.7 mmol/L (3.5-5.1)
[2019-02-26] MEDS ORDERED: MAGNESIUM SULFATE 2 GM/S.W.I. 2 GM/50 ML IVPB IV ONE (08:09)
[2019-02-26] MEDS: DEMADEX PO SCH (10:13)
[2019-02-26] MEDS: PRILOSEC PO SCH ×2 (10:13→20:34)
[2019-02-26] MEDS: PLAVIX PO SCH (10:14)
[2019-02-26] MEDS: ZETIA PO SCH (10:14)
[2019-02-26] MEDS: MAG-OX PO SCH (10:14)
[2019-02-26] MEDS: ENTRESTO 24 MG-26 MG TABLET PO SCH ×2 (10:14→20:34)
[2019-02-26] MEDS: BETAPACE PO SCH ×2 (10:14→20:34)
[2019-02-26] MEDS: COREG PO SCH (10:14)
[2019-02-26] MEDS: IMDUR PO SCH (10:14)
[2019-02-26] MEDS: ELIQUIS PO SCH ×2 (10:15→20:34)
[2019-02-26] MEDS ORDERED: NS 250 ML IV ONE (13:08)
--- NOTE | 2019-02-26 13:45 | EKG Report ---
Test Performed on : 02/26/2019 1:35:11 PM Test Reason : chest pain Blood Pressure : / mmHG Vent. Rate : 074 BPM Atrial Rate : 074 BPM P-R Int : 168 ms QRS Dur : 116 ms QT Int : 486 ms P-R-T Axes : 031 027 164 degrees QTc Int : 539 ms Sinus rhythm. with premature supraventricular complexes. Possible Inferior infarct (cited on or before 11-APR-2016) ST & T wave abnormality, consider anterolateral ischemia Prolonged QT Abnormal ECG When compared with ECG of 24-FEB-2019 06:26, premature ventricular complexes. are no longer present premature supraventricular complexes. are now present ST no longer elevated in Inferior leads T wave inversion now evident in Anterior leads Confirmed by Anupam BOOKER, Eliseo Lucero ([id number]) on 02/28/2019 9:42:00 PM
[2019-02-26 14:00] LABS: ALLEN TEST YES; BE 1.5 mmoll (-3.0-3.0); BLOOD TYPE ARTERIAL; HCO3-(ACT) 26.1 mmoll (20.0-26.0); METHB 1.2 % (0.0-1.5); O2(CT) 15.8 mL/dL (15.0-23.0); O2HB 96.3 % (95.0-99.0); PCO2(98.6) 32 mmHg (35-45); PO2(98.6) 100 mmHg (60-100); SAMPLE BLOOD; SAO2 98.9 % (95.0-100.0); THB 11.6 g/dL (11.5-17.4); pH(98.6) 7.49 (7.35-7.45)
[2019-02-26 14:02] LABS: MODALITY ROOM AIR
[2019-02-26 14:16] LABS: MAGNESIUM 1.4 mg/dL (1.5-2.7); PHOSPHORUS 2.7 mg/dL (2.7-4.5)
--- NOTE | 2019-02-26 15:47 | Diag Imaging Result Doc PS360 ---
CHEST-PORTABLE - 02/26/2019 INDICATION: dyspnea COMPARISON: 02/25/2019 FINDINGS: Stable pacemaker. Stable CABG changes. Stable mild cardiomegaly. Pulmonary vascularity is grossly normal. No infiltrates or edema. No significant pleural effusion. IMPRESSION: Mild cardiomegaly. Electronically signed by Srinivas Mayer 02/26/2019 3:44 PM
--- NOTE | 2019-02-26 19:45 | PROGRESS NOTE ---
DATE: 02/26/2019 SUBJECTIVE: The patient was noted to be severely hypotensive while sitting in a chair next to his bed. He was helped back into the bed and he was barely able to stand on his own. Once lying in bed, the patient's blood pressure improved to 101/60. He was then started on a 250 normal saline bolus and transferred to [facility]. OBJECTIVE: General: This is a chronically ill-appearing, elderly male, lying in bed in no acute distress. Heart: S1, S2 normal. Regular rate and rhythm. Lungs: Equal air entry bilaterally. Diminished breath sounds at the bases. Abdomen: Positive bowel sounds. Soft, nontender, nondistended. Extremities: No edema. No cyanosis. Neurologic: The patient is alert and oriented x3. LABORATORY DATA: White blood cell count 6.2, hemoglobin 11, hematocrit 36, platelets 276,000. Sodium 140, potassium 4, chloride 102, CO2 of 30, BUN 30, creatinine 1.5, glucose 126, magnesium 1.4. ASSESSMENT AND PLAN: 1. Hypotension. Will defer to the change analyst regarding adjustment of the patient's cardiac medications. The patient did receive a 250 mL bolus of normal saline. 2. Acute on chronic systolic congestive heart failure exacerbation. Improved. The patient is currently on torsemide. 3. Coronary artery disease, status post coronary artery bypass graft and stents. Aware. 4. Hypomagnesemia. We will replace the patient's magnesium. Continue on oral magnesium as well. 5. History of pulmonary embolism. Continue on Eliquis. 6. Severe deconditioning. Continue with physical therapy. The patient refuses inpatient rehab placement. He is agreeable to home health services. cc: Grace Ludwig MD
[2019-02-26] MEDS: LIPITOR PO SCH (20:34)
[2019-02-26] MEDS: TYLENOL PO PRN (21:58)
[2019-02-27 05:39] LABS: MAGNESIUM 1.4 mg/dL (1.5-2.7)
[2019-02-27 05:45] LABS: CALCIUM 9.2 mg/dL (8.8-10.2); CREATININE 1.6 mg/dL (0.7-1.2)
[2019-02-27] MEDS ORDERED: MAGNESIUM SULFATE 4 GM/S.W.I. 4 GM/100 ML IVPB IV ONE (07:11)
[2019-02-27 07:26] LABS: HEMATOCRIT 36.1 % (42.0-52.0); HEMOGLOBIN 11.6 g/dL (14.0-18.0); MCH 29.4 PG (27-31); MCHC 32.1 g/dL (33-37); MCV 91.6 FL (81-99); MPV 11.4 FL (7.4-10.4); RBC 3.94 XMIL (4.7-6.1); RDW 15.9 % (11.5-14.5); WBC 6.85 X1000 (4.8-10.8)
--- NOTE | 2019-02-27 08:16 | Diag Imaging Result Doc PS360 ---
EXAM: ANKLE COMPLETE RIGHT INDICATION: fall TECHNIQUE: 3 views COMPARISON: None. FINDINGS: There are degenerative changes at the dome of the talus There is no discrete fracture, dislocation, or significant intrinsic osseous lesion, otherwise. The surrounding soft tissues are essentially unremarkable. IMPRESSION: Degenerative changes but no evidence of acute osseous abnormality. Electronically signed by Todd Guajardo 02/27/2019 8:13 AM
[2019-02-27] MEDS: MAG-OX PO SCH (08:18)
[2019-02-27] MEDS: PRILOSEC PO SCH ×2 (08:18→20:14)
[2019-02-27] MEDS: BETAPACE PO SCH ×2 (08:18→20:14)
[2019-02-27] MEDS: ENTRESTO 24 MG-26 MG TABLET PO SCH ×3 (08:18→20:14)
[2019-02-27] MEDS: PLAVIX PO SCH (08:18)
[2019-02-27] MEDS: DEMADEX PO SCH (08:18)
[2019-02-27] MEDS: ZETIA PO SCH (08:18)
[2019-02-27] MEDS: ELIQUIS PO SCH ×2 (08:18→20:14)
--- NOTE | 2019-02-27 08:18 | Diag Imaging Result Doc PS360 ---
EXAM: KNEE 3 VIEWS RIGHT INDICATION: fall TECHNIQUE: 3 views COMPARISON: None. FINDINGS: There is chondrocalcinosis, which is nonspecific but often associated with CPPD. There is a tiny bone spur at the inferior aspect of the patellar joint surface and there is a large an osteophyte at the anterior aspect of the patella inferiorly. There is no discrete fracture, dislocation, or significant intrinsic osseous lesion, otherwise. The joint spaces are relatively well-preserved. There is atherosclerotic calcification. Surrounding soft tissues are essentially unremarkable, otherwise. IMPRESSION: Chronic changes as detailed above. No definite acute osseous abnormality. Electronically signed by Todd Guajardo 02/27/2019 8:15 AM
--- NOTE | 2019-02-27 09:00 | Diag Imaging Result Doc PS360 ---
EXAM: CT HEAD/C-SPINE W/O CONTRAST INDICATION: fall TECHNIQUE: This exam was performed using automated exposure control, adjustment of mA or kV according to patient size, and/or use of iterative reconstruction technique. COMPARISON: CT head dated 01/11/[address] head and C-spine dated 01/10/2018 FINDINGS: Head: There is patchy low attenuation in the periventricular and subcortical white matter suggesting moderate microangiopathy, stable. There is no definite acute infarct given the limited sensitivity of CT versus MRI. There is no discrete intracranial mass, mass effect, or intracranial hemorrhage. The surrounding soft tissues are essentially unremarkable. The calvaria is intact. C-spine: There is fairly advanced multilevel degenerative disc disease with disc space narrowing and marginal osteophyte formation throughout the cervical spine. This causing varying degrees of central canal and neuroforaminal narrowing that is essentially stable. Otherwise, there is no discrete fracture, subluxation, or intrinsic osseous lesion. There are stable mild emphysematous changes at the lung apices and stable left apical scarring. Surrounding soft tissues are essentially unremarkable, otherwise. IMPRESSION: 1.Stable chronic appearing changes but no evidence of acute intracranial pathology. 2.Stable multilevel degenerative arthropathy but no evidence of fracture or other definite acute C-spine injury. Electronically signed by Todd Guajardo 02/27/2019 8:57 AM
--- NOTE | 2019-02-27 18:12 | PROGRESS NOTE ---
DATE: 02/27/2019 SUBJECTIVE: The patient tried to get out of bed overnight and fell. Imaging was done, and there were no fractures noted. OBJECTIVE: Vital Signs: Temperature 98, blood pressure 106/62, heart rate 70, respirations 18, O2 saturation 100% on room air. General: This is a [id number] elderly male lying in bed in no acute distress. Heart: S1, S2 normal. Regular rate and rhythm. Lungs: Equal air entry bilaterally. No wheezing. No rales. No rhonchi. Abdomen: Positive bowel sounds. Soft, nontender, nondistended. Extremities: No edema. No cyanosis. Neurologic: The patient is alert and oriented x4. LABS: White blood cell count 6.8, hemoglobin 11, hematocrit 36, platelets 295. Sodium 141, potassium 4, chloride 104. CO2 is 25, BUN 35, creatinine 1.6, glucose 114. ASSESSMENT AND PLAN: 1. Acute on chronic systolic congestive heart failure exacerbation. Continue on current cardiac medications as directed by the tailor fitter. 2. Chronic kidney disease. Stable. 3. Coronary artery disease status post coronary artery bypass graft. Aware. Continue on current cardiac medication. 4. History of pulmonary embolism. Continue on Eliquis. 5. Hypomagnesemia. Will replace the patient's magnesium. 6. Severe deconditioning. The patient is a high fall risk. It was recommended that he go to inpatient rehabilitation, but he is refusing. He prefers to be discharged home with home health. We will continue with physical therapy while the patient is hospitalized. cc: Grace Ludwig MD
[2019-02-27] MEDS: LIPITOR PO SCH (20:14)
[2019-02-28 06:15] LABS: CALCIUM 8.9 mg/dL (8.8-10.2); CREATININE 1.5 mg/dL (0.7-1.2); MAGNESIUM 1.7 mg/dL (1.5-2.7); POTASSIUM 3.9 mmol/L (3.5-5.1)
[2019-02-28] MEDS ORDERED: MAGNESIUM SULFATE 2 GM/S.W.I. 2 GM/50 ML IVPB IV ONE (06:18)
[2019-02-28] MEDS: BETAPACE PO SCH ×3 (08:20→20:36)
[2019-02-28] MEDS: ENTRESTO 24 MG-26 MG TABLET PO SCH ×3 (08:20→20:36)
[2019-02-28] MEDS: ZETIA PO SCH (08:20)
[2019-02-28] MEDS: PRILOSEC PO SCH ×3 (08:20→20:36)
[2019-02-28] MEDS: PLAVIX PO SCH (08:20)
[2019-02-28] MEDS: TYLENOL PO PRN ×2 (08:20→19:46)
[2019-02-28] MEDS: DEMADEX PO SCH (08:20)
[2019-02-28] MEDS: ELIQUIS PO SCH ×3 (08:20→20:36)
[2019-02-28] MEDS: MAG-OX PO SCH (08:21)
--- NOTE | 2019-02-28 14:04 | PROGRESS NOTE ---
DATE: 02/28/2019 SUBJECTIVE: The patient is resting comfortably. He is currently eating and he ambulated 300 feet with Physical Therapy yesterday. OBJECTIVE: Vital Signs: Temperature 98.5 degrees, blood pressure 118/57, heart rate 72, respirations 18, O2 saturation 98% on room air. General: This is a chronically ill-appearing elderly male sitting at the edge of the bed in no acute distress. Heart: S1, S2. Normal. Lungs: Clear to auscultation bilaterally. No wheezing. No rales. Abdomen: Positive bowel sounds. Soft, nontender, nondistended. Extremities: No edema, no cyanosis. Neurologic: The patient is alert and oriented x4. LABS: Sodium 141, potassium 3.9, chloride 102, CO2 26, BUN 35, creatinine 1.5, glucose 125. Magnesium 1.7. ASSESSMENT AND PLAN: 1. Acute on chronic systolic congestive heart failure exacerbation. Improved. The patient is on a lower dose of diuretic therapy. Continue on Entresto. 2. Chronic kidney disease. Stable. 3. Coronary artery disease status post coronary artery bypass graft. Continue with current cardiac medications. 4. History of pulmonary embolism. Continue on Eliquis. 5. Severe deconditioning. This appears to have improved. We will continue with physical therapy and fall precautions while hospitalized. The patient prefers to be discharged home with home health once medically stable. The patient should be stable for discharge tomorrow if he does well overnight. cc: Grace Ludwig MD MTDD
[2019-02-28] MEDS: LIPITOR PO SCH ×2 (19:47→20:36)
--- NOTE | 2019-03-01 06:37 | Diag Imaging Result Doc PS360 ---
EXAM: CHEST-PORTABLE HISTORY: dyspnea TECHNIQUE: Chest single view COMPARISON: 02/26/2019 FINDINGS: The lungs are well expanded. The heart is mildly prominent. There are sternal wires, surgical clips, and a left pacemaker. The vessels are not distended. There are no infiltrates. No effusion identified. IMPRESSION: Mild cardiomegaly Electronically signed by Quintin Eduardo 03/01/2019 6:35 AM
[2019-03-01 07:23] LABS: ALBUMIN 3.4 g/dL (3.5-5.0); CALCIUM 9.4 mg/dL (8.8-10.2); CREATININE 1.6 mg/dL (0.7-1.2); MAGNESIUM 1.8 mg/dL (1.5-2.7)
[2019-03-01] MEDS: ZETIA PO SCH (09:36)
[2019-03-01] MEDS: PLAVIX PO SCH (09:36)
[2019-03-01] MEDS: DEMADEX PO SCH (09:36)
[2019-03-01] MEDS: BETAPACE PO SCH (09:36)
[2019-03-01] MEDS: ELIQUIS PO SCH (09:36)
[2019-03-01] MEDS: ENTRESTO 24 MG-26 MG TABLET PO SCH (09:37)
[2019-03-01] MEDS: MAG-OX PO SCH (09:37)
[2019-03-01] MEDS: PRILOSEC PO SCH (09:37)
[2019-03-01 11:12] VITALS: BP 103/54
--- NOTE | 2019-03-01 13:26 | DISCHARGE SUMMARY ---
ADMISSION DATE: 02/21/2019 DISCHARGE DATE:03/01/2019 ADMITTING DIAGNOSES: 1. Congestive heart failure. 2. Hypomagnesemia. 3. Hypokalemia. 4. Acute kidney injury. 5. History of ventricular tachycardia status post pacemaker defibrillator placement. 6. History of coronary artery disease. 7. History of pulmonary embolism. FINAL DISCHARGE DIAGNOSIS: 1. Acute on chronic systolic congestive heart failure. 2. Chronic kidney disease. 3. Coronary artery disease status post coronary artery bypass graft. 4. History of pulmonary embolism. 5. Severe deconditioning, improved. PROCEDURES AND FINDINGS: 1. Initial chest x-ray done on 02/21/2019 shows cardiomegaly last X chest x-ray done on 03/01 shows mild cardiomegaly. 2. Knee x-ray done on 02/27/2019 shows a tiny bone spur at the inferior aspect of the patellar joint and osteophyte at the anterior aspect of the patella inferiorly with no fracture or dislocation and there are atherosclerotic calcifications. 3. There was an ankle x-ray done on 02/27/2019 that shows degenerative changes but no evidence of acute osseous abnormality. 4. There was a head CT of the cervical spine done on 02/27/2019. It shows stable chronic appearing changes, but no evidence of acute intracranial pathology and stable multilevel degenerative arthropathy, but no evidence of a fracture or other acute definite C-spine injury. CONSULTS: Leonel Card MD, Cardiology HOSPITAL COURSE: Mr. Avila is a 74-year-old male who was admitted on 02/21/2019. He came to the ER. States he had been having some dizziness, weakness, some exertional dyspnea and some edema to his bilateral lower extremities. He also had been having a cough. He had some adjustments made to his medications by Dr. Card his branch controller. He was started on metolazone and torsemide. His family had noticed that he had become more weak and started feeling dizzy. He had also had a near syncopal episode at home. He had increased urinary frequency. He had been reporting becoming short of breath. Upon evaluation in the ER he had abnormalities in his electrolytes. His potassium level was 3.3 and his magnesium level was 0.6. He had elevation in his creatinine was 2 and his GFR was 40. He was admitted to the hospital for exacerbation of congestive heart failure, hypomagnesemia and acute kidney injury and hypokalemia. Dr. Card he was consulted. Dr. Card held his metolazone, restarted his torsemide at low dose. Spironlactone was held. He was given slow IV fluid hydration. He was restarted on his Eliquis because of his history of PE, he was started on Entresto and beta-blockers. His creatinine continued to improve. Today, his creatinine is 1.6. His magnesium with supplementation continued to improve. Today, it is 1.8. His potassium level did improve. Today, it is 4.0. The patient is agreeing to go home today with home health. He does not wish to go to a rehab facility. He wants to go home. He will follow up with Dr. Card. DISCHARGE LABORATORY DATA: Sodium 139, potassium 4.0, chloride 104, carbon dioxide 21, BUN is 38, creatinine is 1.6, estimated GFR is 52. Glucose 111, calcium 9.4, phosphorus 3, magnesium 1.8, albumin 3.4, white blood cell count 6.85, red blood cell count 3.94, hemoglobin 11.6, hematocrit 36.1, platelet count 295,000. DISCHARGE MEDICATIONS: 1. Sotalol 80 mg p.o. b.i.d. 2. Plavix 75 mg p.o. daily. 3. Eliquis 5 mg p.o. b.i.d. 4. Lipitor 40 mg p.o. at bedtime. 5. Mag-Ox 400 mg p.o. daily. 6. Omeprazole 20 mg p.o. b.i.d. 7. Torsemide 10 mg p.o. daily. 8. Entresto 24 mg over 26 mg tablet 1 p.o. b.i.d. 9. Zetia 10 mg p.o. daily. DISCHARGE DIET: Continue healthy heart diet with low-sodium. DISCHARGE ACTIVITY: The patient is to discharge home with home health. The patient has [facility] already. He will resume activity per home health. DISPOSITION AND DISCHARGE INSTRUCTIONS: Patient is discharged home with home health. He is to follow up with Dr. Card and primary care physician. Dr. Card's appointment is for 03/[address] Daniel Duke's appointment is for 10/22 at 1:30 p.m. He has [facility]. The patient is to notify his primary care physician if he has any other concerns. Dictated by HOLLY Figueroa for Kelby Pettit MD cc: MD Leonel Philip MD Justin Daigre, MD [facility] SYSTEMSincere
== END 2019-03-01 12:30 | disposition home health service (06) | DRG 291 ==
LOC: ED 15:48 → EDIPHOLD 22:23 → SUATTDRO 22:23 → 2N 02-22 04:31 → 3N 02-24 15:46 → 2N 02-26 14:22
PROVIDERS: ATTEND Internal Medicine

== ENCOUNTER 2019-04-08 18:18 | Inpatient (IN) ==
[2019-04-08 18:38] LABS: BASO# 0.02 X1000 (0.0-0.2); BASO% 0.4 % (0.0-0.8); EOS# 0.13 X1000 (0.0-0.7); EOS% 2.4 % (0.0-10.0); HEMATOCRIT 37.8 % (42.0-52.0); HEMOGLOBIN 11.9 g/dL (14.0-18.0); LYMPH# 1.47 X1000 (1.2-3.4); LYMPH% 26.9 % (20.5-51.1); MCH 27.9 PG (27-31); MCHC 31.5 g/dL (33-37); MCV 88.7 FL (81-99); MONO# 0.86 X1000 (0.11-0.59); MONO% 15.7 % (1.7-9.3); MPV 11.6 FL (7.4-10.4); NEUT# 2.99 X1000 (1.4-6.5); NEUT% 54.6 % (42.2-75.2); PLT 184 X1000 (130-400); RBC 4.26 XMIL (4.7-6.1); RDW 16.3 % (11.5-14.5); WBC 5.47 X1000 (4.8-10.8)
[2019-04-08 20:47] LABS: URINE SOURCE CATH
[2019-04-08 20:51] LABS: BILIRUBIN URINE NEGATIVE (NEGATIVE); BLOOD URINE TRACE (NEGATIVE); COLOR YELLOW; GLUCOSE URINE NEGATIVE (NEGATIVE); KETONE URINE NEGATIVE (NEGATIVE); LEUKOCYTES URINE NEGATIVE (NEGATIVE); NITRITE URINE NEGATIVE (NEGATIVE); PROTEIN URINE 70 mg/dL (NEGATIVE); SP GRAVITY URINE 1.013; TURBIDITY URINE HAZY (CLEAR); UROBILINOGEN URINE NORMAL (NORMAL)
[2019-04-08 21:00] LABS: UR EPITHELIAL CELLS >10 /HPF (<10); URINE BACTERIA NEGATIVE /HPF; URINE RBC <10 /HPF (<10); URINE WBC 20-40 /HPF (<10)
[2019-04-08 21:09] LABS: URINE CASTS NONE SEEN; URINE SMALL ROUND CELLS TRANS PRESENT
[2019-04-08 21:19] LABS: ALB/GLOB RATIO 1.4; ALBUMIN 3.6 g/dL (3.5-5.0); CALCIUM 9.5 mg/dL (8.8-10.2); CREATININE 1.7 mg/dL (0.7-1.2); MAGNESIUM 0.7 mg/dL (1.5-2.7); POTASSIUM 3.4 mmol/L (3.5-5.1); TOTAL BILIRUBIN 0.86 mg/dL (0.20-1.00); TOTAL PROTEIN 6.2 g/dL (6.3-8.3)
[2019-04-09 06:39] LABS: CALCIUM 8.9 mg/dL (8.8-10.2); CREATININE 1.5 mg/dL (0.7-1.2); MAGNESIUM 1.8 mg/dL (1.5-2.7); POTASSIUM 3.2 mmol/L (3.5-5.1)
[2019-04-10 06:29] LABS: AGAP 14; BUN 22 mg/dL (8-22); CALCIUM 8.8 mg/dL (8.8-10.2); CHLORIDE 110 mmol/L (98-107); COSMO 290; CREATININE 1.3 mg/dL (0.7-1.2); ESTIMATED GFR > 60; GLUCOSE 94 mg/dL (70-104); MAGNESIUM 1.4 mg/dL (1.5-2.7); POTASSIUM 3.5 mmol/L (3.5-5.1); SODIUM 144 mmol/L (136-145); TCO2 20 mmol/L (25-35)
[2019-04-11 06:40] LABS: AGAP 13; BUN 19 mg/dL (8-22); CALCIUM 9.1 mg/dL (8.8-10.2); CHLORIDE 110 mmol/L (98-107); COSMO 294; CREATININE 1.3 mg/dL (0.7-1.2); ESTIMATED GFR > 60; GLUCOSE 118 mg/dL (70-104); MAGNESIUM 1.3 mg/dL (1.5-2.7); POTASSIUM 3.2 mmol/L (3.5-5.1); SODIUM 146 mmol/L (136-145); TCO2 23 mmol/L (25-35)
[2019-04-12 06:11] LABS: BASO# 0.02 X1000 (0.0-0.2); BASO% 0.3 % (0.0-0.8); EOS# 0.23 X1000 (0.0-0.7); EOS% 3.9 % (0.0-10.0); HEMATOCRIT 32.7 % (42.0-52.0); HEMOGLOBIN 10.4 g/dL (14.0-18.0); LYMPH# 1.55 X1000 (1.2-3.4); LYMPH% 26.5 % (20.5-51.1); MCH 27.9 PG (27-31); MCHC 31.8 g/dL (33-37); MCV 87.7 FL (81-99); MONO# 0.73 X1000 (0.11-0.59); MONO% 12.5 % (1.7-9.3); MPV 11.3 FL (7.4-10.4); NEUT# 3.32 X1000 (1.4-6.5); NEUT% 56.8 % (42.2-75.2); PLT 172 X1000 (130-400); RBC 3.73 XMIL (4.7-6.1); RDW 15.9 % (11.5-14.5); WBC 5.85 X1000 (4.8-10.8)
[2019-04-12 06:38] LABS: AGAP 13; BUN 19 mg/dL (8-22); CALCIUM 8.9 mg/dL (8.8-10.2); CHLORIDE 107 mmol/L (98-107); COSMO 289; CREATININE 1.3 mg/dL (0.7-1.2); ESTIMATED GFR > 60; GLUCOSE 98 mg/dL (70-104); MAGNESIUM 1.5 mg/dL (1.5-2.7); POTASSIUM 3.5 mmol/L (3.5-5.1); SODIUM 144 mmol/L (136-145); TCO2 24 mmol/L (25-35)
[2019-04-13 06:58] LABS: CALCIUM 9.1 mg/dL (8.8-10.2); CREATININE 1.4 mg/dL (0.7-1.2); MAGNESIUM 1.8 mg/dL (1.5-2.7); POTASSIUM 3.8 mmol/L (3.5-5.1)
[2019-04-13 11:28] VITALS: BP 129/81
== END 2019-04-13 13:00 | disposition home health service (06) | DRG 309 ==
LOC: ED 18:18 → ICU 22:16 → SUATTDRO 22:16 → 2N 04-09 17:24
PROVIDERS: ATTEND Internal Medicine